=== PATIENT | male | born 1950 | race Caucasian/White ===

== ENCOUNTER → 2018-03-21 | Outpatient (CLI) | payer MEDICARE, OTHER ==
[~2018-03-21] MED LIST: /ATOR40TA; /LANS30GR; /TIOT18INH; ASPI81TA83; COZA50TA18; ISOVUE-M 300 61% 15ML VIAL (Q9967) As Ordered ONE; LIDOCAINE 1% MDV 20ML VIAL As Ordered ONE; NITR0.4S; TOPR100T
--- NOTE | 2018-03-21 10:27 | REP ---
CT LUMBAR SPINE WITHOUT CONTRAST: HISTORY: Back pain. CT of the lumbar spine was performed status post myelography. Contrast material is mostly subdural in location. A small amount of intrathecal contrast is present. A diffuse disc bulge is present at the L1-2 level. There are 2 mm of retrolisthesis of L1 on 2. There is minimal compression of the thecal sac. The L1 nerves exit the neural foramina without compression. A diffuse disc bulge is present at the L2-3 level. There is minimal compression of the thecal sac. The L2 nerves exit the neural foramina without compression. A diffuse disc bulge is present at the L3-4 level. There is hypertrophy of the ligamenta flava and posterior articulating facets. These findings produce mild central canal stenosis. The L3 nerves exit the neural foramina without compression. A diffuse disc bulge is present at the L4-5 level. There is hypertrophy of the ligamenta flava and posterior articulating facets. These findings produce moderate central canal stenosis. There is compression of the L4 nerves in the neural foramina. A diffuse disc bulge is present at the L5-S1 level. There is minimal compression of the thecal sac. There is hypertrophy of the posterior articulating facets. The L5 nerves exit the neural foramina without compression. The L1-2, L3-4, and L4-5 intervertebral discs are decreased in height consistent with disc degeneration. There is no subluxation. IMPRESSION: 1. Diffuse disc bulge at the L2-3 and L5-S1 levels with minimal thecal sac compression. 2. Mild central canal stenosis at the L3-4 level secondary to disc bulge, ligamentous, and facet hypertrophy. 3. Moderate central canal stenosis at the L4-5 level secondary to disc bulge, ligamentous, and facet hypertrophy. There is compression of the L4 nerves in the neural foramina. Electronically Signed by Luis Joseph MD 03/21/2018 10:43 A
--- NOTE | 2018-03-21 17:14 | REP ---
LUMBAR MYELOGRAM The procedure was performed under the personal supervision of Dr. Fuentes. The risks and benefits of the procedure were explained to the patient and informed consent was obtained. The L3-4 interspace was localized using fluoroscopic guidance. The skin was prepped and draped in a sterile fashion. 1% lidocaine was used as a local anesthetic. Using fluoroscopic guidance a 22-gauge spinal needle was inserted and advanced into the thecal sac. 10 ml of Isovue 300 was injected. Images obtained after injection show disc bulges at L1-2, L3-4 and L4-5. The needle was removed and the patient has taken to CT scan for postprocedural imaging. The patient tolerated the procedure well and there were no immediate complications. After the appropriate amount of monitored convalescence the patient was discharged from the department. 0.4 minutes of fluoroscopy time was utilized for this procedure. Reviewed by BREANA Alfaro 03/21/2018 04:47 P Electronically Signed by Shan Fuentes MD 03/21/2018 05:04 P
== END ==
LOC: M RADPRO 07:52
PROVIDERS: ATTEND Orthopaedic Surgery
DX: M48.07 Spinal stenosis, lumbosacral region (principal); M51.26 Other intervertebral disc displacement, lumbar region
CPT/HCPCS: 62284; 72131; 72265; Q9967

== ENCOUNTER → 2020-01-03 | Outpatient (CLI) | payer MEDICARE, BC ==
[~2020-01-03] MED LIST changes: -/ATOR40TA; -/TIOT18INH; -ISOVUE-M 300 61% 15ML VIAL (Q9967) As Ordered ONE; -LIDOCAINE 1% MDV 20ML VIAL As Ordered ONE; +LIPI1TAB2; +METO-745; +SPIR1CAP; -TOPR100T
== END ==
LOC: M LABSMTC 11:25
PROVIDERS: ATTEND Physical Medicine & Rehabilitation
DX: Z01.812 Encounter for preprocedural laboratory examination (principal); Z20.828 Contact with and (suspected) exposure to other viral communicable diseases

== ENCOUNTER → 2020-12-21 | Outpatient (CLI) | payer MEDICARE, BC ==
[~2020-12-21] MED LIST changes: +ASPI1CHW3 PO; +ATOR40TA75 PO; +CLOP75TA2 PO; +DEXA4TA PO; +FOLI400T13 PO; +GLUC1TAB58 PO; +IRBE150T7 PO; +LEVO75TA4 PO; +LIDOCAINE 1% MDV 20ML VIAL As Ordered ONE; +LIVA4TAB PO; +METO200T28 PO; +MIDAZOLAM INJ 2MG/2ML VIAL (J2250 PER 1MG) As Ordered ONE; +NITR0.4S14 SL; +NS 1,000 ML IV SCH; +ONDA8TAB10 PO; +PREV15CA PO; +PROC10TA4 PO; +VITATAB74 PO; +ceFAZolin 1GM VIAL (J0690 PER 500MG) As Ordered ONE; +ceFAZolin SOD 1 GM in D5W MINI-BAG PLUS 50 ML IV ONE; +ceFAZolin SOD 2 GM in IV 1 EA IV ONE; +diphenhydrAMINE 50MG/ML VIAL (J1200) As Ordered ONE; +fentaNYL 100 MCG/2 ML INJECTION (J3010) As Ordered ONE
--- NOTE | 2020-12-21 10:23 | IRHP ---
[facility] IR Pre-Procedure H & P General Date of Service: Dec 21, 2020 Procedure: Same Day Surgery Interval History and Physical I have seen the patient and reviewed last H & P performed within 30 days. There is no significant interval change. History of Present Illness Chief Complaint The patient is a 70-year-old male admitted with a reason for visit of Lung Ca. PRE-PROCEDURE DIAGNOSIS: Lung cancer HEART: normal rate. LUNGS: normal breathing at rest. ASA Classification ASA Classification: III-Severe systemic dis. Mallampati Score: II NPO: Yes Problems with prior sedation: No Obstructive Sleep Apnea: No Plan moderate sedation Allergies Coded Allergies: No Known Drug Allergies (Verified Allergy, Unknown, 12/21/20) Home Medications Scheduled Aspirin (Aspirin), 1 TAB PO DAILY, (Reported) Atorvastatin Calcium (Atorvastatin Calcium), 1 TAB PO DAILY, (Reported) Clopidogrel Bisulfate (Clopidogrel), 75 MG PO DAILY, (Reported) Irbesartan (Irbesartan), 1 TAB PO BID, (Reported) Levothyroxine Sodium (Levothyroxine Sodium), 75 MCG PO DAILY, (Reported) Metoprolol Succinate (Metoprolol Succinate), 100 MG PO BID, (Reported) Mv-Mn/Iron/Folic Acid/Herb 190 (Vitamin D3 Complete Caplet), 25 MG PO DAILY, (Reported) Nitroglycerin (Nitroglycerin), 1 TAB SL ASDIRECTED, (Reported) Pitavastatin Calcium (Livalo), 1 TAB PO DAILY, (Reported) Miscellaneous Medications Glucosamine/D3/Boswellia Negin (Osteo Bi-Flex Tablet), 1 EACH PO, (Reported) Discontinued Medications Lansoprazole (Prevacid 24Hr), 30 MG PO, (Reported) Discontinued Reason: Pt states not taking VS, I&O, 24H, Fishbone Vital Signs/I&O Vital Signs Date Time Temp Pulse Resp B/P (MAP) Pulse Ox O2 Delivery O2 Flow Rate FiO2 12/21/20 09:25 97.9 69 18 93 Room Air ANALI HOLLAND MD Dec 21, 2020 10:23
[2020-12-21 13:00] VITALS: BP 113/58
--- NOTE | 2020-12-21 14:06 | IRPON ---
IR Postoperative Note Date Of Procedure: Dec 21, 2020 Time Of Procedure: 14:05 IR Postoperative Note IR Ultrasound and fluoroscopy guided port placement IR Ultrasound of the neck. IR Moderate sedation. Clinical indication: Lung cancer. Physician: Dr. Escamilla. Procedure: The patient was advised of the benefits, risks, and alternatives of the procedure and informed consent was obtained. A time-out was performed with verification of the patient's name, MRN, site of procedure and type of procedure to be performed. The patient was positioned in the supine position on the angiographic table. The site was prepped and draped in the usual sterile fashion. Moderate sedation was performed by the physician including the presence of an independent trained RN who assisted and monitored the patient's level of consciousness and physiologic status. Following the administration of fentanyl and Versed , the physician spent 45 minutes of continuous face to face time with the patient. Ultrasound of the neck reveals a patent and compressible right internal jugular vein. A deep submergence vehicle crewmember radiograph reveals left-sided cardiac device. Pleurx catheter. The neck and anterior chest wall were anesthetized with lidocaine. The right internal jugular vein was accessed using a microintroducer needle under ultrasound guidance, via a lateral approach. An 018 wire was advanced into the superior vena cava, the needle was removed and a microsheath was placed. An Amplatz wire was then passed into the inferior vena cava. An incision at the internal jugular vein access site and anterior chest wall were made using a scalpel. An incision was made at the anterior chest wall. A small pocket was created using a combination of blunt and sharp dissection. A tunneling device was then used to pass the catheter from the pocket to the neck puncture site. An 8- Syrian Angio Stockdrift Smart power port was then positioned in the pocket. The catheter was then measured and cut. The introducer sheath was exchanged for a peel-away sheath. The catheter was passed through the peel-away sheath into the internal jugular vein and the peel-away sheath was removed. The port tip was positioned at the cavoatrial junction. The port was then accessed with a García needle. The port flushes and aspirates well. The puncture site in the neck was closed. The chest wall incision was then closed with 2-0 Vicryl and 4-0 Monocryl. Glue and Steri- Strips were applied. A sterile dressing was then applied. The patient tolerated the procedure well and was returned to the PRU in stable condition. Estimated blood loss: <5 ml. Complications: None. Conclusion: 1. Successful placement of an 8-Sy[place] Angio dynamics Smart power port via the right internal jugular vein. The port is ready for immediate use. 2. Patient to follow up in IR clinic in 2 weeks. Thank you for this referral. ANALI ESCAMILAL MD Dec 21, 2020 14:06
== END ==
LOC: M IRPRO 09:21
PROVIDERS: ATTEND Specialist
DX: C34.90 Malignant neoplasm of unspecified part of unspecified bronchus or lung (principal); Z79.82 Long term (current) use of aspirin; Z79.890 Hormone replacement therapy; Z79.899 Other long term (current) drug therapy
CPT/HCPCS: 36561; 99152; 99153; C1769; C1788; C1894; J0690; J1200; J1642; J1644; J2250; J3010

== ENCOUNTER → 2021-01-10 | Outpatient (POV) | payer MEDICARE, BC ==
[~2021-01-10] VITALS: Ht 170.2 cm; Wt 81.8 kg
[~2021-01-10] MED LIST changes: -LIDOCAINE 1% MDV 20ML VIAL As Ordered ONE; -MIDAZOLAM INJ 2MG/2ML VIAL (J2250 PER 1MG) As Ordered ONE; -NS 1,000 ML IV SCH; -ceFAZolin 1GM VIAL (J0690 PER 500MG) As Ordered ONE; -ceFAZolin SOD 1 GM in D5W MINI-BAG PLUS 50 ML IV ONE; -ceFAZolin SOD 2 GM in IV 1 EA IV ONE; -diphenhydrAMINE 50MG/ML VIAL (J1200) As Ordered ONE; -fentaNYL 100 MCG/2 ML INJECTION (J3010) As Ordered ONE
[2021-01-10 07:40] VITALS: BP 113/52
--- NOTE | 2021-01-12 12:32 | IRPN ---
[facility] IR Progress Note IR Progress Note DATE: Jan 10, 2021 FOLLOW-UP: Status post port placement. Patient doing well. Denies fevers, chills, pain or discharge at site. Port has been used without any issues. ON EXAMINATION: Port site appears to be healing well. No redness, tenderness or fluctuance at the site. IMPRESSION: Doing well status post port placement. No further follow-up sc heduled unless initiated by patient and/or referring provider. Thank you for this referral Allergies Coded Allergies: No Known Drug Allergies (Verified Allergy, Unknown, 12/21/20) VS,Fishbone, I+O VS, Fishbone, I+O Vital Signs Date Time Temp Pulse Resp B/P (MAP) Pulse Ox O2 Delivery O2 Flow Rate FiO2 01/10/21 07:40 96.6 64 18 113/52 (72) 95 Room Air ANALI HOLLAND MD Jan 12, 2021 12:32
== END ==
LOC: M IRPOV 07:25
PROVIDERS: ATTEND Radiology Diagnostic Radiology
DX: Z45.2 Encounter for adjustment and management of vascular access device (principal)

== ENCOUNTER → 2021-02-17 | Outpatient (CLI) | payer MEDICARE, BC ==
[~2021-02-17] MED LIST changes: +ISOVUE-370 76% 100ML VIAL As Ordered ONE; +OMEP10CASR PO
--- NOTE | 2021-02-17 14:27 | REP ---
INDICATION: MESTHELMONIA COMPARISON: 11/08/2020 TECHNIQUE: Axial contrast enhanced images from the thoracic inlet to the upper abdomen with coronal and sagittal reformations using 75 ml Isovue 370 intravenous contrast material. This CT examination was performed using the following dose reduction techniques: Automated exposure control, adjustment of mA and/or kv according to the patient's size, and use of iterative reconstruction technique. FINDINGS: A chest tube is identified within the posterior aspect of the right hemithorax. Advanced COPD/emphysematous changes along with advanced subpleural fibrosis is appreciated bilaterally along with associated bronchiectasis and scattered scarring. The previously noted significant irregular and somewhat nodular circumferential pleural thickening involving the right hemithorax is markedly improved and essentially resolved. Only minimal posterior pleural thickening is now identified. A small 5 mm pulmonary nodule noted in the periphery of the right middle lobe (image 68) which is similar to prior examination. Mildly prominent mediastinal and right hilar lymph nodes remain unchanged. No new acute mediastinal or pleuroparenchymal process is appreciated. Thoracic aorta demonstrates atherosclerotic changes without aneurysm or dissection. Mild cardiomegaly is appreciated with atherosclerotic changes to the coronary arteries, and no pericardial effusion. Oepgqq-[id number] identified with tip in the SVC. Pacemaker lead extend into the right atrium. Musculoskeletal structures intact and without acute osseous abnormality. IMPRESSION: 1. Markedly improved and nearly completely resolved circumferential nodular right pleural thickening as compared with prior examination dated 11/08/2020. 2. Residual 5 mm nodule in the periphery of the right middle lobe along with mediastinal/right hilar adenopathy remain unchanged. 3. No new acute process appreciated. <Electronically signed by Azael Prajapati > 02/17/21 [id number]
== END ==
LOC: M RAD 10:28
PROVIDERS: ATTEND Specialist
DX: C45.0 Mesothelioma of pleura (principal); J44.9 Chronic obstructive pulmonary disease, unspecified; R91.1 Solitary pulmonary nodule; I70.0 Atherosclerosis of aorta; I51.7 Cardiomegaly
CPT/HCPCS: 71260; Q9967

== ENCOUNTER → 2021-03-02 | Outpatient (CLI) | payer MEDICARE, BC ==
[~2021-03-02] MED LIST changes: +CENT1TAB2 PO; -ISOVUE-370 76% 100ML VIAL As Ordered ONE; +METO1TAB33 PO; +ONDA-84 PO; -ONDA8TAB10 PO; -PROC10TA4 PO; +PROC10TA5 PO; +TREL1AER INH
== END ==
LOC: M LABSMTC 09:53
PROVIDERS: ATTEND Pediatrics
DX: Z20.822 Contact with and (suspected) exposure to COVID-19 (principal)

== ENCOUNTER → 2021-05-19 | Outpatient (CLI) | payer MEDICARE, BC ==
[~2021-05-19] MED LIST changes: -CENT1TAB2 PO; +ISOVUE-370 76% 100ML VIAL As Ordered ONE; -METO1TAB33 PO; +TREL1AER; -TREL1AER INH
== END ==
LOC: M RAD 14:56
PROVIDERS: ATTEND Specialist
DX: C45.9 Mesothelioma, unspecified (principal)
CPT/HCPCS: 71260; Q9967

== ENCOUNTER 2021-05-27 16:23 | Inpatient (IN) | payer MEDICARE, BC ==
[~2021-05-27] VITALS: Ht 172.7 cm; Wt 87.0 kg
[~2021-05-27 16:23] MED LIST changes: -ISOVUE-370 76% 100ML VIAL As Ordered ONE; -TREL1AER; +TREL1AER INH
[2021-05-27 20:05] VITALS: BP 120/64
[2021-05-27 20:59] LABS: HEMATOCRIT 29.1 % (42.0-52.0); HEMOGLOBIN 9.1 g/dl (13.5-17.5)
[2021-05-27] MEDS ORDERED: IRBESARTAN 150MG TAB PO SCH (21:00)
[2021-05-27] MEDS ORDERED: IPRATROPIUM 0.5MG/ALBUTEROL 2.5MG INH SOL UD 3ML (DUONEB) NEB PRN (21:00)
[2021-05-27] MEDS ORDERED: METOPROLOL SUCC (TopROL XL) 100MG *XL* TAB PO SCH (21:00)
[2021-05-27] MEDS ORDERED: NS 1,000 ML IV SCH (21:05)
[2021-05-27 21:13] VITALS: BP 129/62
[2021-05-27 21:26] LABS: ALBUMIN 2.8 GM/DL (3.2-5.2); BILIRUBIN,TOTAL 0.2 MG/DL (0.2-1.0); CALCIUM LEVEL 8.9 MG/DL (8.8-10.2); CREATININE FOR GFR 1.54 MG/DL (0.70-1.30); GLOMERULAR FILTRATION RATE 47.6 (>42); MAGNESIUM LEVEL 1.9 MG/DL (1.8-2.4); POTASSIUM SERUM 5.3 MEQ/L (3.5-5.1); TOTAL PROTEIN 6.5 GM/DL (6.4-8.2)
[2021-05-27 22:00] VITALS: O2SAT 95
[2021-05-27] MEDS ORDERED: METO1TAB33 PO (22:46)
[2021-05-27] MEDS ORDERED: CENT1TAB2 PO (22:48)
[2021-05-27] MEDS ORDERED: HOME MED LIST COMPLETE! XX SCH (22:50)
[2021-05-27 23:00] VITALS: O2SAT 96
[2021-05-27 23:25] VITALS: O2SAT 96
[2021-05-27] MEDS ORDERED: PERCOCET 5MG/325MG TAB PO PRN (23:35)
[2021-05-27] MEDS: LIDOCAINE 5% (LIDODERM) PATCH TD SCH (23:40)
[2021-05-28] VITALS (50 sets, daily range): BP systolic 78–153; BP diastolic 40–79; O2SAT 94–97
[2021-05-28] MEDS: ACETAMINOPHEN TAB 650MG DOSE (2X325MG) PO PRN (03:21)
[2021-05-28] MEDS ORDERED: ONDANSETRON 4MG/2ML VIAL IV PRN ×2 (04:30→11:55)
[2021-05-28] MEDS ORDERED: TRANEXAMIC ACID INJection 1,000 MG in D5W 100 ML IV ONE (04:55)
[2021-05-28] MEDS ORDERED: NS 1,000 ML IV SCH (05:00)
[2021-05-28 05:51] LABS: BASO # 0.1 10^3/uL (0.0-0.2); BASO % 0.4 % (0.0-1.0); EOS % 0.1 % (0.0-3.0); HEMATOCRIT 24.1 % (42.0-52.0); HEMOGLOBIN 7.7 g/dl (13.5-17.5); LYMPH # 2.1 10^3/uL (1.5-5.0); LYMPH % 15.1 % (24.0-44.0); MEAN CORPUSCULAR HEMOGLOBIN 32.4 pg (27.0-33.0); MEAN CORPUSCULAR VOLUME 101.3 fl (80.0-96.0); MONO % 12.5 % (2.0-8.0); NEUTROPHILS % 71.3 % (36.0-66.0); PLATELET COUNT, AUTOMATED 225 10^3/uL (150-450); RED BLOOD COUNT 2.38 10^6/uL (4.30-6.10); WHITE BLOOD COUNT 14.1 10^3/uL (4.0-10.0)
[2021-05-28 05:59] LABS: BLOOD UREA NITROGEN 32 MG/DL (7-18); CALCIUM LEVEL 8.5 MG/DL (8.8-10.2); CARBON DIOXIDE LEVEL 20 MEQ/L (21-32); CHLORIDE LEVEL 105 MEQ/L (98-107); CREATININE FOR GFR 1.25 MG/DL (0.70-1.30); GLOMERULAR FILTRATION RATE > 60.0 (>42); GLUCOSE, FASTING 108 MG/DL (70-100); POTASSIUM SERUM 5.2 MEQ/L (3.5-5.1); SODIUM LEVEL 133 MEQ/L (136-145)
[2021-05-28] MEDS: LEVOTHYROXINE 75MCG TABLET (0.075MG) PO SCH (06:00)
[2021-05-28] MEDS ORDERED: MORPHINE 4 MG/ML 1ML VIAL/SYRINGE (J2270) IV ONE ×2 (06:00→07:00)
[2021-05-28] MEDS ORDERED: DOXYCYCLINE HYCLATE 100 MG in D5W MINI-BAG PLUS 100 ML IV SCH (06:00)
[2021-05-28 06:01] LABS: INR 1.04; PARTIAL THROMBOPLASTIN TIME 31.5 SECONDS (25.9-37.0)
[2021-05-28 06:22] LABS: MONO # 1.8 10^3/uL (0.0-0.8)
[2021-05-28] MEDS: MULTIVITAMINS/MINERALS THERAP 1 TAB PO SCH (09:00)
[2021-05-28] MEDS: **NOTE PATIENT COMMENT** MISC XX SCH (09:00)
[2021-05-28] MEDS ORDERED: EPINEPHrine 1MG/ML INJ 30ML MD-VIAL As Ordered ONE ×2 (09:43→10:48)
[2021-05-28] MEDS ORDERED: EPINEPHrine INJ 1 MG/ML 1ML AMP As Ordered ONE (09:43)
[2021-05-28] MEDS ORDERED: METHYLENE BLUE 0.5% (5MG/ML) 10 ML AMP (PROVAYBLUE) As Ordered ONE (09:45)
[2021-05-28] MEDS ORDERED: PHENYLephrine 500MCG 5ML (100MCG/ML) SYRINGE As Ordered ONE ×2 (10:10→10:11)
[2021-05-28] MEDS ORDERED: SUCCINYLCHOLINE 100 MG/5 ML SYRINGE (J0330) As Ordered ONE (10:10)
[2021-05-28] MEDS ORDERED: ePHEDrine SULFATE 25 MG/5 ML(5MG/ML) SYRINGE As Ordered ONE (10:11)
[2021-05-28] MEDS ORDERED: MIDAZOLAM INJ 2MG/2ML VIAL (J2250 PER 1MG) As Ordered ONE ×2 (10:13→17:39)
[2021-05-28] MEDS ORDERED: propofoL 200 MG/20 ML VIAL As Ordered ONE (10:13)
[2021-05-28] MEDS ORDERED: LIDOCAINE 2% 100MG/5ML SDV (FOR ANES.) As Ordered ONE (10:13)
[2021-05-28] MEDS ORDERED: ROCURONIUM BROMIDE 50 MG/5 ML VIAL As Ordered ONE (10:13)
[2021-05-28] MEDS ORDERED: fentaNYL 100 MCG/2 ML INJECTION As Ordered ONE ×2 (10:13→11:12)
[2021-05-28] MEDS ORDERED: SUGAMMADEX SODIUM 500 MG/5 ML VIAL (BRIDION) As Ordered ONE (10:22)
[2021-05-28] MEDS ORDERED: CALCIUM CHLORIDE 10% 1 GM/10 ML SYR As Ordered ONE (10:23)
[2021-05-28] MEDS ORDERED: METOPROLOL 5 MG/5 ML VIAL As Ordered ONE (10:40)
[2021-05-28] MEDS ORDERED: SILVER NITRATE APPLICATOR As Ordered ONE ×2 (10:44→11:06)
[2021-05-28] MEDS ORDERED: SILVER NITRATE APPLICATOR ONE (11:06)
[2021-05-28] MEDS ORDERED: LABETALOL 100MG/20ML VIAL As Ordered ONE (11:34)
[2021-05-28] MEDS: LABETALOL 100MG/20ML VIAL IV PRN ×3 (11:49→12:18)
[2021-05-28] MEDS ORDERED: LR 1,000 ML IV SCH (11:55)
[2021-05-28] MEDS ORDERED: fentaNYL 100 MCG/2 ML INJECTION IV PRN (11:55)
[2021-05-28 12:24] LABS: HEMATOCRIT 29.6 % (42.0-52.0); HEMOGLOBIN 9.5 g/dl (13.5-17.5); MEAN CORPUSCULAR HEMOGLOBIN 31.3 pg (27.0-33.0); MEAN CORPUSCULAR HGB CONC 32.1 g/dl (32.0-36.5); MEAN CORPUSCULAR VOLUME 97.4 fl (80.0-96.0); PLATELET COUNT, AUTOMATED 162 10^3/uL (150-450); RED BLOOD COUNT 3.04 10^6/uL (4.30-6.10); WHITE BLOOD COUNT 11.4 10^3/uL (4.0-10.0)
[2021-05-28] MEDS ORDERED: PROPOFOL 1,000 MG/100 ML VIAL As Ordered ONE (12:43)
[2021-05-28 12:55] LABS: ALBUMIN 2.6 GM/DL (3.2-5.2); ALT/SGPT 15 U/L (12-78); BILIRUBIN,TOTAL 0.7 MG/DL (0.2-1.0); BLOOD UREA NITROGEN 30 MG/DL (7-18); CALCIUM LEVEL 8.8 MG/DL (8.8-10.2); CARBON DIOXIDE LEVEL 22 MEQ/L (21-32); CHLORIDE LEVEL 107 MEQ/L (98-107); CREATININE FOR GFR 1.24 MG/DL (0.70-1.30); GLOMERULAR FILTRATION RATE > 60.0 (>42); GLUCOSE, FASTING 115 MG/DL (70-100); POTASSIUM SERUM 4.9 MEQ/L (3.5-5.1); SODIUM LEVEL 136 MEQ/L (136-145); TOTAL PROTEIN 5.5 GM/DL (6.4-8.2)
[2021-05-28 13:07] LABS: ABG BASE EXCESS -9.9 (-2.0-2.0); ABG HCO3 18.6 MEQ/L (22.0-26.0); ABG O2 SATURATION 86.2 % (95.0-99.0); ABG PARTIAL PRESSURE CO2 53.7 mmHg (35.0-45.0); ABG PARTIAL PRESSURE O2 62.1 mmHg (75.0-100.0); ABG STANDARD HCO3 16.3 MEQ/L (22.0-26.0); ABG TOTAL CO2 20.3 MEQ/L (23.0-31.0)
[2021-05-28 13:11] LABS: ABG pH (ARTERIAL) 7.158 UNITS (7.350-7.450)
[2021-05-28 13:44] LABS: ABG BASE EXCESS -4.3 (-2.0-2.0); ABG HCO3 21.7 MEQ/L (22.0-26.0); ABG O2 SATURATION 90.2 % (95.0-99.0); ABG PARTIAL PRESSURE CO2 43.7 mmHg (35.0-45.0); ABG PARTIAL PRESSURE O2 64.2 mmHg (75.0-100.0); ABG STANDARD HCO3 20.8 MEQ/L (22.0-26.0); ABG pH (ARTERIAL) 7.314 UNITS (7.350-7.450)
[2021-05-28] MEDS: propofoL 1,000 MG in IV 1 EA IV SCH ×3 (14:09→21:43)
[2021-05-28] MEDS ORDERED: TAZOBACTAM SOD IV SCH (14:15)
[2021-05-28] MEDS ORDERED: PIPERACILLIN IV SCH (14:15)
[2021-05-28] MEDS ORDERED: FLUID PLACE HOLDER IV SCH (14:15)
[2021-05-28] MEDS: PANTOPRAZOLE 40MG VIAL (C9113 PER 1) IV SCH (14:16)
[2021-05-28] MEDS: MUPIROCIN 2% OINT 22 GM TUBE TOP SCH ×2 (14:16→21:10)
[2021-05-28 14:31] LABS: BASO % 0.2 % (0.0-1.0); HEMATOCRIT 28.5 % (42.0-52.0); HEMOGLOBIN 9.5 g/dl (13.5-17.5); LYMPH # 0.4 10^3/uL (1.5-5.0); LYMPH % 3.3 % (24.0-44.0); MEAN CORPUSCULAR HEMOGLOBIN 31.6 pg (27.0-33.0); MEAN CORPUSCULAR HGB CONC 33.3 g/dl (32.0-36.5); MEAN CORPUSCULAR VOLUME 94.7 fl (80.0-96.0); MONO # 1.1 10^3/uL (0.0-0.8); MONO % 8.9 % (2.0-8.0); NEUTROPHILS # 10.5 10^3/uL (1.5-8.5); NEUTROPHILS % 86.7 % (36.0-66.0); PLATELET COUNT, AUTOMATED 144 10^3/uL (150-450); RED BLOOD COUNT 3.01 10^6/uL (4.30-6.10); WHITE BLOOD COUNT 12.1 10^3/uL (4.0-10.0)
[2021-05-28] MEDS ORDERED: ATROPINE SULF 1MG/10ML SYRINGE (J0461) ONE (15:04)
[2021-05-28] MEDS ORDERED: ePHEDrine SULFATE 25 MG/5 ML(5MG/ML) SYRINGE ONE (15:04)
[2021-05-28] MEDS: PIPERACILLIN/TAZOBACTAM SOD 3.375 GM in D5W MINI-BAG PLUS 50 ML IV SCH ×2 (16:16→21:09)
[2021-05-28] MEDS: MIDAZOLAM INJ 2MG/2ML VIAL (J2250 PER 1MG) IV PRN ×2 (17:26→18:26)
[2021-05-28 18:14] LABS: CREATININE FOR GFR 1.4 MG/DL (0.70-1.30); GLOMERULAR FILTRATION RATE 53.2 (>42); POTASSIUM SERUM 4.7 MEQ/L (3.5-5.1)
[2021-05-28] MEDS ORDERED: MIDAZOLAM INJ 2MG/2ML VIAL (J2250 PER 1MG) IV PRN (18:30)
[2021-05-28] MEDS: fentaNYL CITRATE 1,000 MCG in NS 80 ML IV SCH ×2 (19:00→20:35)
[2021-05-28] MEDS ORDERED: FUROSEMIDE 100MG/10ML VIAL (J1940) IV ONE (19:00)
[2021-05-28] MEDS: BUDESONIDE 0.5 MG/2 ML INHALATION SUSPENSION INH SCH (19:39)
[2021-05-28] MEDS ORDERED: NOREPINEPHRINE BITARTRATE 8 MG in D5W 492 ML IV SCH (20:00)
[2021-05-28 20:27] LABS: HEMATOCRIT 24.6 % (42.0-52.0); HEMOGLOBIN 8.2 g/dl (13.5-17.5); LYMPH # 0.5 10^3/uL (1.5-5.0); LYMPH % 3.8 % (24.0-44.0); MEAN CORPUSCULAR HEMOGLOBIN 31.1 pg (27.0-33.0); MEAN CORPUSCULAR HGB CONC 33.3 g/dl (32.0-36.5); MEAN CORPUSCULAR VOLUME 93.2 fl (80.0-96.0); MONO # 1.3 10^3/uL (0.0-0.8); MONO % 10.1 % (2.0-8.0); NEUTROPHILS # 10.9 10^3/uL (1.5-8.5); NEUTROPHILS % 85.3 % (36.0-66.0); PLATELET COUNT, AUTOMATED 132 10^3/uL (150-450); RED BLOOD COUNT 2.64 10^6/uL (4.30-6.10); WHITE BLOOD COUNT 12.8 10^3/uL (4.0-10.0)
[2021-05-28] MEDS: METOPROLOL TART 50 MG TAB PO SCH (20:36)
[2021-05-28] MEDS: LIDOCAINE 5% (LIDODERM) PATCH TD SCH (21:10)
[2021-05-28] MEDS: NOREPINEPHRINE BITARTRATE 8 MG in D5W 492 ML IV SCH (21:44)
[2021-05-28] MEDS ORDERED: NS 500 ML IV ONE (23:00)
[2021-05-29] VITALS (49 sets, daily range): BP systolic 76–137; BP diastolic 38–60
[2021-05-29 02:35] LABS: BASO % 0.1 % (0.0-1.0); HEMATOCRIT 25.1 % (42.0-52.0); HEMOGLOBIN 8.5 g/dl (13.5-17.5); MEAN CORPUSCULAR HEMOGLOBIN 31.6 pg (27.0-33.0); MEAN CORPUSCULAR HGB CONC 33.9 g/dl (32.0-36.5); MEAN CORPUSCULAR VOLUME 93.3 fl (80.0-96.0); MONO % 11.3 % (2.0-8.0); NEUTROPHILS # 13.8 10^3/uL (1.5-8.5); NEUTROPHILS % 82.1 % (36.0-66.0); PLATELET COUNT, AUTOMATED 158 10^3/uL (150-450); RED BLOOD COUNT 2.69 10^6/uL (4.30-6.10); WHITE BLOOD COUNT 16.8 10^3/uL (4.0-10.0)
[2021-05-29 02:41] LABS: MONO # 1.9 10^3/uL (0.0-0.8)
[2021-05-29] MEDS: PIPERACILLIN/TAZOBACTAM SOD 3.375 GM in D5W MINI-BAG PLUS 50 ML IV SCH ×4 (03:27→20:37)
[2021-05-29] MEDS: propofoL 1,000 MG in IV 1 EA IV SCH ×2 (03:28→06:29)
[2021-05-29] MEDS: LEVOTHYROXINE 75MCG TABLET (0.075MG) PO SCH (05:47)
[2021-05-29] MEDS: BUDESONIDE 0.5 MG/2 ML INHALATION SUSPENSION INH SCH ×2 (07:46→19:55)
[2021-05-29] MEDS: IRBESARTAN 150MG TAB GT SCH (08:51)
[2021-05-29] MEDS: METOPROLOL TART 50 MG TAB PO SCH ×2 (08:51→20:46)
[2021-05-29] MEDS: MUPIROCIN 2% OINT 22 GM TUBE TOP SCH ×2 (08:52→21:28)
[2021-05-29] MEDS: MULTIVITAMINS/MINERALS THERAP 1 TAB PO SCH (08:52)
[2021-05-29 08:56] LABS: BASO % 0.1 % (0.0-1.0); HEMATOCRIT 25.2 % (42.0-52.0); HEMOGLOBIN 8.5 g/dl (13.5-17.5); LYMPH # 1.4 10^3/uL (1.5-5.0); LYMPH % 8.2 % (24.0-44.0); MEAN CORPUSCULAR HEMOGLOBIN 31.7 pg (27.0-33.0); MEAN CORPUSCULAR HGB CONC 33.7 g/dl (32.0-36.5); MONO % 14.4 % (2.0-8.0); NEUTROPHILS # 12.8 10^3/uL (1.5-8.5); NEUTROPHILS % 76.5 % (36.0-66.0); PLATELET COUNT, AUTOMATED 167 10^3/uL (150-450); RED BLOOD COUNT 2.68 10^6/uL (4.30-6.10); WHITE BLOOD COUNT 16.7 10^3/uL (4.0-10.0)
[2021-05-29 08:57] LABS: MONO # 2.4 10^3/uL (0.0-0.8)
[2021-05-29] MEDS: **NOTE PATIENT COMMENT** MISC XX SCH (08:57)
[2021-05-29] MEDS ORDERED: dexmedeTOMidine 200 MCG in IV 1 EA IV SCH (09:10)
[2021-05-29 09:37] LABS: ALBUMIN 2.6 GM/DL (3.2-5.2); ALT/SGPT 14 U/L (12-78); BILIRUBIN,TOTAL 0.6 MG/DL (0.2-1.0); BLOOD UREA NITROGEN 23 MG/DL (7-18); CALCIUM LEVEL 8.8 MG/DL (8.8-10.2); CARBON DIOXIDE LEVEL 29 MEQ/L (21-32); CHLORIDE LEVEL 105 MEQ/L (98-107); CREATININE FOR GFR 1.09 MG/DL (0.70-1.30); GLOMERULAR FILTRATION RATE > 60.0 (>42); GLUCOSE, FASTING 108 MG/DL (70-100); MAGNESIUM LEVEL 1.7 MG/DL (1.8-2.4); POTASSIUM SERUM 4.6 MEQ/L (3.5-5.1); SODIUM LEVEL 138 MEQ/L (136-145); TOTAL PROTEIN 5.5 GM/DL (6.4-8.2)
[2021-05-29] MEDS: PANTOPRAZOLE 40MG VIAL (C9113 PER 1) IV SCH (15:10)
[2021-05-29] MEDS ORDERED: IRON SUCROSE 100MG 5ML VIAL (J1756 PER 1MG) IV ONE (15:20)
[2021-05-29] MEDS ORDERED: LR 500 ML IV ONE (16:05)
[2021-05-29] MEDS: LR 1,000 ML IV SCH ×2 (16:36→22:38)
[2021-05-29] MEDS: LIDOCAINE 5% (LIDODERM) PATCH TD SCH (20:38)
[2021-05-29] MEDS: ACETAMINOPHEN TAB 650MG DOSE (2X325MG) PO PRN (20:38)
[2021-05-29] MEDS: NOREPINEPHRINE BITARTRATE 8 MG in D5W 492 ML IV SCH (21:00)
[2021-05-29 21:02] LABS: BLOOD UREA NITROGEN 19 MG/DL (7-18); CALCIUM LEVEL 7.8 MG/DL (8.8-10.2); CARBON DIOXIDE LEVEL 27 MEQ/L (21-32); CHLORIDE LEVEL 112 MEQ/L (98-107); CREATININE FOR GFR 0.97 MG/DL (0.70-1.30); GLOMERULAR FILTRATION RATE > 60.0 (>42); GLUCOSE, FASTING 92 MG/DL (70-100); POTASSIUM SERUM 3.8 MEQ/L (3.5-5.1); SODIUM LEVEL 144 MEQ/L (136-145)
[2021-05-30] VITALS (19 sets, daily range): BP systolic 98–132; BP diastolic 52–62; O2SAT 87–96
[2021-05-30] MEDS: PIPERACILLIN/TAZOBACTAM SOD 3.375 GM in D5W MINI-BAG PLUS 50 ML IV SCH ×4 (02:23→21:04)
[2021-05-30 04:58] LABS: BASO % 0.3 % (0.0-1.0); EOS # 0.1 10^3/uL (0.0-0.5); EOS % 0.5 % (0.0-3.0); HEMATOCRIT 24.1 % (42.0-52.0); HEMOGLOBIN 7.8 g/dl (13.5-17.5); LYMPH # 1.3 10^3/uL (1.5-5.0); LYMPH % 14.1 % (24.0-44.0); MEAN CORPUSCULAR HEMOGLOBIN 31.5 pg (27.0-33.0); MEAN CORPUSCULAR HGB CONC 32.4 g/dl (32.0-36.5); MEAN CORPUSCULAR VOLUME 97.2 fl (80.0-96.0); MONO # 1.3 10^3/uL (0.0-0.8); MONO % 13.5 % (2.0-8.0); NEUTROPHILS # 6.8 10^3/uL (1.5-8.5); NEUTROPHILS % 71.2 % (36.0-66.0); PLATELET COUNT, AUTOMATED 145 10^3/uL (150-450); RED BLOOD COUNT 2.48 10^6/uL (4.30-6.10); WHITE BLOOD COUNT 9.5 10^3/uL (4.0-10.0)
[2021-05-30 05:22] LABS: BLOOD UREA NITROGEN 18 MG/DL (7-18); CALCIUM LEVEL 8.4 MG/DL (8.8-10.2); CARBON DIOXIDE LEVEL 31 MEQ/L (21-32); CHLORIDE LEVEL 106 MEQ/L (98-107); CREATININE FOR GFR 1.05 MG/DL (0.70-1.30); GLOMERULAR FILTRATION RATE > 60.0 (>42); GLUCOSE, FASTING 79 MG/DL (70-100); SODIUM LEVEL 143 MEQ/L (136-145)
[2021-05-30] MEDS: LEVOTHYROXINE 75MCG TABLET (0.075MG) PO SCH (05:58)
[2021-05-30] MEDS: MUPIROCIN 2% OINT 22 GM TUBE TOP SCH ×2 (07:51→21:03)
[2021-05-30] MEDS: METOPROLOL TART 50 MG TAB PO SCH ×2 (07:52→21:10)
[2021-05-30] MEDS: MULTIVITAMINS/MINERALS THERAP 1 TAB PO SCH (07:52)
[2021-05-30] MEDS: **NOTE PATIENT COMMENT** MISC XX SCH (07:52)
[2021-05-30] MEDS: IRBESARTAN 150MG TAB GT SCH (07:53)
[2021-05-30] MEDS: BUDESONIDE 0.5 MG/2 ML INHALATION SUSPENSION INH SCH ×2 (08:13→19:32)
[2021-05-30] MEDS: ACETAMINOPHEN TAB 650MG DOSE (2X325MG) PO PRN (11:46)
[2021-05-30] MEDS: PANTOPRAZOLE 40MG VIAL (C9113 PER 1) IV SCH (14:48)
[2021-05-30] MEDS: LR 1,000 ML IV SCH (15:52)
[2021-05-30] MEDS ORDERED: PERCOCET 5MG/325MG TAB PO ONE (17:15)
[2021-05-30] MEDS: FORMOTEROL FUMARATE 20 MCG/2 ML INHALATION SOLUTION (PERFOROMIST) NEB SCH (19:32)
[2021-05-30] MEDS: LIDOCAINE 5% (LIDODERM) PATCH TD SCH (21:00)
[2021-05-31] VITALS (17 sets, daily range): BP systolic 84–140; BP diastolic 40–72; O2SAT 79–100
[2021-05-31] MEDS: PIPERACILLIN/TAZOBACTAM SOD 3.375 GM in D5W MINI-BAG PLUS 50 ML IV SCH ×2 (03:34→09:16)
[2021-05-31] MEDS ORDERED: diphenhydrAMINE 50MG CAP PO ONE (05:45)
[2021-05-31] MEDS ORDERED: ACETAMINOPHEN TAB 650MG DOSE (2X325MG) PO ONE (05:45)
[2021-05-31] MEDS: TIOTROPIUM INHALER/CAPSULE (SPIRIVA) INH SCH ×2 (05:54→07:22)
[2021-05-31] MEDS: LEVOTHYROXINE 75MCG TABLET (0.075MG) PO SCH (06:31)
[2021-05-31 06:57] LABS: HEMATOCRIT 24.4 % (42.0-52.0); HEMOGLOBIN 7.9 g/dl (13.5-17.5); MEAN CORPUSCULAR HEMOGLOBIN 31.9 pg (27.0-33.0); MEAN CORPUSCULAR HGB CONC 32.4 g/dl (32.0-36.5); MEAN CORPUSCULAR VOLUME 98.4 fl (80.0-96.0); PLATELET COUNT, AUTOMATED 157 10^3/uL (150-450); RED BLOOD COUNT 2.48 10^6/uL (4.30-6.10); WHITE BLOOD COUNT 9.6 10^3/uL (4.0-10.0)
[2021-05-31] MEDS: FORMOTEROL FUMARATE 20 MCG/2 ML INHALATION SOLUTION (PERFOROMIST) NEB SCH ×2 (07:22→20:00)
[2021-05-31] MEDS: BUDESONIDE 0.5 MG/2 ML INHALATION SUSPENSION INH SCH ×2 (07:22→20:00)
[2021-05-31 07:30] LABS: BLOOD UREA NITROGEN 15 MG/DL (7-18); CALCIUM LEVEL 8.4 MG/DL (8.8-10.2); CARBON DIOXIDE LEVEL 30 MEQ/L (21-32); CHLORIDE LEVEL 104 MEQ/L (98-107); CREATININE FOR GFR 0.97 MG/DL (0.70-1.30); GLOMERULAR FILTRATION RATE > 60.0 (>42); GLUCOSE, FASTING 87 MG/DL (70-100); POTASSIUM SERUM 3.9 MEQ/L (3.5-5.1); SODIUM LEVEL 139 MEQ/L (136-145)
[2021-05-31] MEDS ORDERED: FERRIC CARBOXYMALTOSE INJ 750 MG, VIAL MATE ADAPTER 1 EACH in NS 250 ML IV ONE (09:00)
[2021-05-31] MEDS: ASPIRIN 81 MG CHEW TABLET PO SCH (09:14)
[2021-05-31] MEDS: MULTIVITAMINS/MINERALS THERAP 1 TAB PO SCH (09:14)
[2021-05-31] MEDS: MUPIROCIN 2% OINT 22 GM TUBE TOP SCH ×2 (09:16→21:22)
[2021-05-31] MEDS: IRBESARTAN 150MG TAB GT SCH (09:16)
[2021-05-31] MEDS: METOPROLOL TART 50 MG TAB PO SCH (09:16)
[2021-05-31] MEDS: **NOTE PATIENT COMMENT** MISC XX SCH (09:16)
[2021-05-31] MEDS ORDERED: NS 1,000 ML IV ONE (11:50)
[2021-05-31] MEDS: MIDODRINE 5 MG TAB PO SCH ×2 (12:48→15:29)
[2021-05-31] MEDS: PANTOPRAZOLE 40MG VIAL (C9113 PER 1) IV SCH (15:29)
[2021-05-31 17:10] LABS: HEMATOCRIT 23.9 % (42.0-52.0); HEMOGLOBIN 7.7 g/dl (13.5-17.5)
[2021-05-31] MEDS: LIDOCAINE 5% (LIDODERM) PATCH TD SCH (21:00)
[2021-05-31] MEDS: AUGMENTIN 875 MG TAB PO SCH (21:22)
[2021-06-01] VITALS (16 sets, daily range): BP systolic 118–146; BP diastolic 56–69; O2SAT 92–98
[2021-06-01] MEDS: ACETAMINOPHEN TAB 650MG DOSE (2X325MG) PO PRN ×2 (00:31→16:08)
[2021-06-01 05:44] LABS: HEMATOCRIT 24.3 % (42.0-52.0); HEMOGLOBIN 7.7 g/dl (13.5-17.5); MEAN CORPUSCULAR HEMOGLOBIN 31.4 pg (27.0-33.0); MEAN CORPUSCULAR HGB CONC 31.7 g/dl (32.0-36.5); MEAN CORPUSCULAR VOLUME 99.2 fl (80.0-96.0); PLATELET COUNT, AUTOMATED 168 10^3/uL (150-450); RED BLOOD COUNT 2.45 10^6/uL (4.30-6.10)
[2021-06-01] MEDS: LEVOTHYROXINE 75MCG TABLET (0.075MG) PO SCH (06:02)
[2021-06-01 06:14] LABS: BLOOD UREA NITROGEN 18 MG/DL (7-18); CARBON DIOXIDE LEVEL 29 MEQ/L (21-32); CHLORIDE LEVEL 108 MEQ/L (98-107); GLOMERULAR FILTRATION RATE > 60.0 (>42); GLUCOSE, FASTING 81 MG/DL (70-100); SODIUM LEVEL 141 MEQ/L (136-145)
[2021-06-01] MEDS: TIOTROPIUM INHALER/CAPSULE (SPIRIVA) INH SCH (07:43)
[2021-06-01] MEDS: BUDESONIDE 0.5 MG/2 ML INHALATION SUSPENSION INH SCH ×2 (07:43→20:37)
[2021-06-01] MEDS: FORMOTEROL FUMARATE 20 MCG/2 ML INHALATION SOLUTION (PERFOROMIST) NEB SCH ×2 (07:43→20:37)
[2021-06-01] MEDS: MIDODRINE 5 MG TAB PO SCH ×3 (08:00→15:55)
[2021-06-01] MEDS: MUPIROCIN 2% OINT 22 GM TUBE TOP SCH ×2 (09:49→21:26)
[2021-06-01] MEDS: MULTIVITAMINS/MINERALS THERAP 1 TAB PO SCH (09:49)
[2021-06-01] MEDS: ASPIRIN 81 MG CHEW TABLET PO SCH (09:49)
[2021-06-01] MEDS: AUGMENTIN 875 MG TAB PO SCH ×2 (09:49→21:26)
[2021-06-01] MEDS: **NOTE PATIENT COMMENT** MISC XX SCH (09:53)
[2021-06-01 10:55] LABS: BLOOD UREA NITROGEN 19 MG/DL (7-18); CHLORIDE LEVEL 108 MEQ/L (98-107); GLOMERULAR FILTRATION RATE > 60.0 (>42); GLUCOSE, FASTING 156 MG/DL (70-100); POTASSIUM SERUM 3.8 MEQ/L (3.5-5.1); SODIUM LEVEL 141 MEQ/L (136-145)
[2021-06-01 10:56] LABS: CALCIUM LEVEL 8.3 MG/DL (8.8-10.2); CARBON DIOXIDE LEVEL 29 MEQ/L (21-32)
[2021-06-01] MEDS: PANTOPRAZOLE 40MG VIAL (C9113 PER 1) IV SCH (14:59)
[2021-06-01] MEDS: LIDOCAINE 5% (LIDODERM) PATCH TD SCH (21:26)
[2021-06-02] VITALS (9 sets, daily range): BP systolic 108–173; BP diastolic 53–79; O2SAT 90–95
[2021-06-02] MEDS: LEVOTHYROXINE 75MCG TABLET (0.075MG) PO SCH (05:44)
[2021-06-02 05:50] LABS: HEMATOCRIT 29.3 % (42.0-52.0); HEMOGLOBIN 9.5 g/dl (13.5-17.5); MEAN CORPUSCULAR HEMOGLOBIN 31.4 pg (27.0-33.0); MEAN CORPUSCULAR HGB CONC 32.4 g/dl (32.0-36.5); MEAN CORPUSCULAR VOLUME 96.7 fl (80.0-96.0); PLATELET COUNT, AUTOMATED 174 10^3/uL (150-450); RED BLOOD COUNT 3.03 10^6/uL (4.30-6.10); WHITE BLOOD COUNT 9.9 10^3/uL (4.0-10.0)
[2021-06-02 06:11] LABS: BLOOD UREA NITROGEN 16 MG/DL (7-18); CALCIUM LEVEL 8.3 MG/DL (8.8-10.2); CARBON DIOXIDE LEVEL 25 MEQ/L (21-32); CHLORIDE LEVEL 107 MEQ/L (98-107); CREATININE FOR GFR 0.91 MG/DL (0.70-1.30); GLOMERULAR FILTRATION RATE > 60.0 (>42); GLUCOSE, FASTING 91 MG/DL (70-100); POTASSIUM SERUM 3.9 MEQ/L (3.5-5.1); SODIUM LEVEL 137 MEQ/L (136-145)
[2021-06-02] MEDS: MIDODRINE 5 MG TAB PO SCH ×3 (08:00→16:00)
[2021-06-02] MEDS: BUDESONIDE 0.5 MG/2 ML INHALATION SUSPENSION INH SCH ×2 (08:21→20:09)
[2021-06-02] MEDS: FORMOTEROL FUMARATE 20 MCG/2 ML INHALATION SOLUTION (PERFOROMIST) NEB SCH ×2 (08:21→20:09)
[2021-06-02] MEDS: TIOTROPIUM INHALER/CAPSULE (SPIRIVA) INH SCH (08:21)
[2021-06-02] MEDS: ASPIRIN 81 MG CHEW TABLET PO SCH (08:48)
[2021-06-02] MEDS: MULTIVITAMINS/MINERALS THERAP 1 TAB PO SCH (08:48)
[2021-06-02] MEDS: AUGMENTIN 875 MG TAB PO SCH ×2 (08:48→20:24)
[2021-06-02] MEDS: MUPIROCIN 2% OINT 22 GM TUBE TOP SCH ×2 (09:10→20:25)
[2021-06-02 10:51] LABS: ABG BASE EXCESS -1.5 (-2.0-2.0); ABG HCO3 21.8 MEQ/L (22.0-26.0); ABG O2 SATURATION 95.8 % (95.0-99.0); ABG PARTIAL PRESSURE CO2 31.6 mmHg (35.0-45.0); ABG PARTIAL PRESSURE O2 76.2 mmHg (75.0-100.0); ABG STANDARD HCO3 23.2 MEQ/L (22.0-26.0); ABG TOTAL CO2 22.7 MEQ/L (23.0-31.0); ABG pH (ARTERIAL) 7.456 UNITS (7.350-7.450)
[2021-06-02] MEDS: **NOTE PATIENT COMMENT** MISC XX SCH (11:19)
[2021-06-02] MEDS: PANTOPRAZOLE 40MG VIAL (C9113 PER 1) IV SCH (14:01)
[2021-06-02] MEDS: LIDOCAINE 5% (LIDODERM) PATCH TD SCH (20:14)
[2021-06-02] MEDS ORDERED: ALBUTEROL 90 MCG/ACT 8GM HFA INHALER INH PRN (20:40)
[2021-06-02] MEDS: ACETAMINOPHEN TAB 650MG DOSE (2X325MG) PO PRN (20:51)
[2021-06-02] MEDS: IPRATROPIUM 0.5MG/ALBUTEROL 2.5MG INH SOL UD 3ML (DUONEB) NEB SCH ×2 (20:59→23:38)
[2021-06-02] MEDS ORDERED: ISOVUE-370 76% 100ML VIAL As Ordered ONE (21:18)
[2021-06-02] MEDS ORDERED: METOPROLOL TART 12.5 MG PER 1/2 TAB PO ONE (21:45)
[2021-06-02 22:42] LABS: HEMATOCRIT 28.5 % (42.0-52.0); HEMOGLOBIN 9.3 g/dl (13.5-17.5); MEAN CORPUSCULAR HEMOGLOBIN 31.6 pg (27.0-33.0); MEAN CORPUSCULAR HGB CONC 32.6 g/dl (32.0-36.5); MEAN CORPUSCULAR VOLUME 96.9 fl (80.0-96.0); PLATELET COUNT, AUTOMATED 161 10^3/uL (150-450); RED BLOOD COUNT 2.94 10^6/uL (4.30-6.10); WHITE BLOOD COUNT 10.3 10^3/uL (4.0-10.0)
[2021-06-02 23:14] LABS: CK-MB VALUE MASS < 1.0 NG/ML (<3.6); CPK CREATINE PHOSPHOKINASE 59 U/L (39-308); MB/CK RELATIVE INDEX 1.69 (< OR =4)
[2021-06-02] MEDS ORDERED: FUROSEMIDE 40MG/4ML VIAL (J1940) IV ONE (23:15)
[2021-06-03] VITALS (20 sets, daily range): BP systolic 110–135; BP diastolic 55–65; O2SAT 82–100
[2021-06-03] MEDS: IPRATROPIUM 0.5MG/ALBUTEROL 2.5MG INH SOL UD 3ML (DUONEB) NEB SCH ×6 (03:26→23:22)
[2021-06-03] MEDS: ACETAMINOPHEN TAB 650MG DOSE (2X325MG) PO PRN (04:05)
[2021-06-03 05:24] LABS: HEMATOCRIT 30.6 % (42.0-52.0); HEMOGLOBIN 9.9 g/dl (13.5-17.5); MEAN CORPUSCULAR HEMOGLOBIN 31.4 pg (27.0-33.0); MEAN CORPUSCULAR HGB CONC 32.4 g/dl (32.0-36.5); MEAN CORPUSCULAR VOLUME 97.1 fl (80.0-96.0); PLATELET COUNT, AUTOMATED 182 10^3/uL (150-450); RED BLOOD COUNT 3.15 10^6/uL (4.30-6.10); WHITE BLOOD COUNT 12.7 10^3/uL (4.0-10.0)
[2021-06-03 05:43] LABS: BLOOD UREA NITROGEN 17 MG/DL (7-18); CALCIUM LEVEL 8.5 MG/DL (8.8-10.2); CARBON DIOXIDE LEVEL 25 MEQ/L (21-32); CHLORIDE LEVEL 105 MEQ/L (98-107); GLOMERULAR FILTRATION RATE > 60.0 (>42); GLUCOSE, FASTING 120 MG/DL (70-100); POTASSIUM SERUM 4.1 MEQ/L (3.5-5.1); SODIUM LEVEL 136 MEQ/L (136-145)
[2021-06-03] MEDS: LEVOTHYROXINE 75MCG TABLET (0.075MG) PO SCH (05:55)
[2021-06-03] MEDS: HEPARIN DRIP 25,000 UNITS in IV 1 EA IV SCH (06:00)
[2021-06-03] MEDS ORDERED: HEPARIN SOD (PORCINE) 5000UNITS/ML 1ML VIAL/SYRINGE IV PRN (06:00)
[2021-06-03] MEDS ORDERED: HEPARIN SOD (PORCINE) 5000UNITS/ML 1ML VIAL/SYRINGE IV ONE (06:00)
[2021-06-03] MEDS: TIOTROPIUM INHALER/CAPSULE (SPIRIVA) INH SCH (07:12)
[2021-06-03] MEDS: FORMOTEROL FUMARATE 20 MCG/2 ML INHALATION SOLUTION (PERFOROMIST) NEB SCH ×2 (07:14→19:43)
[2021-06-03] MEDS: BUDESONIDE 0.5 MG/2 ML INHALATION SUSPENSION INH SCH ×2 (07:14→19:43)
[2021-06-03] MEDS: ASPIRIN 81 MG CHEW TABLET PO SCH (09:12)
[2021-06-03] MEDS: MULTIVITAMINS/MINERALS THERAP 1 TAB PO SCH (09:12)
[2021-06-03] MEDS: PIPERACILLIN/TAZOBACTAM SOD 4.5 GM in D5W MINI-BAG PLUS 50 ML IV SCH ×2 (09:12→15:10)
[2021-06-03] MEDS: FUROSEMIDE 40MG/4ML VIAL (J1940) IV SCH (09:13)
[2021-06-03] MEDS: MIDODRINE 5 MG TAB PO SCH ×3 (09:13→15:57)
[2021-06-03] MEDS: MUPIROCIN 2% OINT 22 GM TUBE TOP SCH ×2 (09:14→21:42)
[2021-06-03] MEDS: **NOTE PATIENT COMMENT** MISC XX SCH (09:15)
[2021-06-03] MEDS ORDERED: FUROSEMIDE 20MG/2ML VIAL (J1940) As Ordered ONE (10:51)
[2021-06-03] MEDS ORDERED: methylPREDNISolone 125MG 2ML VIAL IV ONE (10:55)
[2021-06-03] MEDS ORDERED: FUROSEMIDE 40MG/4ML VIAL (J1940) IV ONE ×2 (11:00→15:00)
[2021-06-03] MEDS: LEVALBUTEROL 1.25 MG/0.5 ML CONCENTRATE NEB INH SCH ×6 (11:08→15:31)
[2021-06-03 11:09] LABS: ABG HCO3 21.1 MEQ/L (22.0-26.0); ABG O2 SATURATION 80.1 % (95.0-99.0); ABG PARTIAL PRESSURE CO2 30.7 mmHg (35.0-45.0); ABG PARTIAL PRESSURE O2 42.8 mmHg (75.0-100.0); ABG STANDARD HCO3 22.5 MEQ/L (22.0-26.0); ABG pH (ARTERIAL) 7.455 UNITS (7.350-7.450)
[2021-06-03 11:58] LABS: NT-PRO BNP 786 PG/ML (<125)
[2021-06-03 12:04] LABS: CK-MB VALUE MASS < 1.0 NG/ML (<3.6); CPK CREATINE PHOSPHOKINASE 64 U/L (39-308); MB/CK RELATIVE INDEX 1.56 (< OR =4)
[2021-06-03 12:15] LABS: LDH LACTATE DEHYDROGENASE 748 U/L (87-241)
[2021-06-03] MEDS: SODIUM CHLORIDE NASAL 0.65% SPRAY BTL (OCEAN) SCH ×11 (13:53→23:26)
[2021-06-03] MEDS: PANTOPRAZOLE 40MG VIAL (C9113 PER 1) IV SCH (13:56)
[2021-06-03] MEDS ORDERED: VANCOMYCIN HCL 1,000 MG, VIAL MATE ADAPTER 1 EACH in NS 250 ML IV ONE (14:00)
[2021-06-03] MEDS ORDERED: SODIUM CHLORIDE HYPERTONIC 3% 15ML NEB SOL NEB ONE (14:00)
[2021-06-03 16:53] LABS: NT-PRO BNP 574 PG/ML (<125)
[2021-06-03] MEDS: LIDOCAINE 5% (LIDODERM) PATCH TD SCH (21:00)
[2021-06-03] MEDS: VANCOMYCIN HCL 1,000 MG, VIAL MATE ADAPTER 1 EACH in NS 250 ML IV SCH (21:41)
[2021-06-03 22:30] LABS: ABG BASE EXCESS 1.2 (-2.0-2.0); ABG HCO3 24.3 MEQ/L (22.0-26.0); ABG O2 SATURATION 85.3 % (95.0-99.0); ABG STANDARD HCO3 25.3 MEQ/L (22.0-26.0); ABG TOTAL CO2 25.3 MEQ/L (23.0-31.0); ABG pH (ARTERIAL) 7.485 UNITS (7.350-7.450)
[2021-06-03 22:34] LABS: ABG PARTIAL PRESSURE O2 47.7 mmHg (75.0-100.0)
[2021-06-03] MEDS: methylPREDNISolone 125MG 2ML VIAL IV SCH (22:46)
[2021-06-04] VITALS (15 sets, daily range): BP systolic 105–138; BP diastolic 55–86
[2021-06-04] MEDS: PIPERACILLIN/TAZOBACTAM SOD 4.5 GM in D5W MINI-BAG PLUS 50 ML IV SCH ×4 (00:27→23:53)
[2021-06-04] MEDS: SODIUM CHLORIDE NASAL 0.65% SPRAY BTL (OCEAN) SCH ×24 (01:11→23:40)
[2021-06-04] MEDS: IPRATROPIUM 0.5MG/ALBUTEROL 2.5MG INH SOL UD 3ML (DUONEB) NEB SCH ×5 (03:47→19:40)
[2021-06-04 04:02] LABS: ABG BASE EXCESS 0.9 (-2.0-2.0); ABG HCO3 25.2 MEQ/L (22.0-26.0); ABG O2 SATURATION 99.1 % (95.0-99.0); ABG PARTIAL PRESSURE CO2 39.1 mmHg (35.0-45.0); ABG PARTIAL PRESSURE O2 174.6 mmHg (75.0-100.0); ABG STANDARD HCO3 25.3 MEQ/L (22.0-26.0); ABG TOTAL CO2 26.4 MEQ/L (23.0-31.0); ABG pH (ARTERIAL) 7.427 UNITS (7.350-7.450)
[2021-06-04] MEDS: methylPREDNISolone 125MG 2ML VIAL IV SCH ×2 (05:13→20:38)
[2021-06-04] MEDS: HEPARIN DRIP 25,000 UNITS in IV 1 EA IV SCH (05:14)
[2021-06-04] MEDS: LEVOTHYROXINE 75MCG TABLET (0.075MG) PO SCH (05:58)
[2021-06-04] MEDS: MIDODRINE 5 MG TAB PO SCH ×4 (07:40→18:27)
[2021-06-04] MEDS: TIOTROPIUM INHALER/CAPSULE (SPIRIVA) INH SCH (08:00)
[2021-06-04] MEDS: FORMOTEROL FUMARATE 20 MCG/2 ML INHALATION SOLUTION (PERFOROMIST) NEB SCH ×2 (08:15→19:40)
[2021-06-04] MEDS: BUDESONIDE 0.5 MG/2 ML INHALATION SUSPENSION INH SCH ×2 (08:15→19:40)
[2021-06-04 08:30] LABS: BASO % 0.2 % (0.0-1.0); HEMATOCRIT 29.9 % (42.0-52.0); HEMOGLOBIN 9.7 g/dl (13.5-17.5); LYMPH # 0.4 10^3/uL (1.5-5.0); LYMPH % 2.5 % (24.0-44.0); MEAN CORPUSCULAR HEMOGLOBIN 31.6 pg (27.0-33.0); MEAN CORPUSCULAR HGB CONC 32.4 g/dl (32.0-36.5); MEAN CORPUSCULAR VOLUME 97.4 fl (80.0-96.0); MONO # 0.8 10^3/uL (0.0-0.8); MONO % 4.9 % (2.0-8.0); NEUTROPHILS # 15.3 10^3/uL (1.5-8.5); NEUTROPHILS % 91.6 % (36.0-66.0); PLATELET COUNT, AUTOMATED 215 10^3/uL (150-450); RED BLOOD COUNT 3.07 10^6/uL (4.30-6.10); WHITE BLOOD COUNT 16.7 10^3/uL (4.0-10.0)
[2021-06-04 08:40] LABS: ALBUMIN 2.3 GM/DL (3.2-5.2); ALT/SGPT 16 U/L (12-78); BILIRUBIN,TOTAL 0.8 MG/DL (0.2-1.0); BLOOD UREA NITROGEN 33 MG/DL (7-18); CALCIUM LEVEL 8.8 MG/DL (8.8-10.2); CARBON DIOXIDE LEVEL 27 MEQ/L (21-32); CHLORIDE LEVEL 103 MEQ/L (98-107); CREATININE FOR GFR 1.21 MG/DL (0.70-1.30); GLOMERULAR FILTRATION RATE > 60.0 (>42); GLUCOSE, FASTING 138 MG/DL (70-100); MAGNESIUM LEVEL 2.1 MG/DL (1.8-2.4); POTASSIUM SERUM 3.8 MEQ/L (3.5-5.1); SODIUM LEVEL 136 MEQ/L (136-145)
[2021-06-04] MEDS: **NOTE PATIENT COMMENT** MISC XX SCH (09:00)
[2021-06-04] MEDS: MULTIVITAMINS/MINERALS THERAP 1 TAB PO SCH (09:54)
[2021-06-04] MEDS: ASPIRIN 81 MG CHEW TABLET PO SCH (09:54)
[2021-06-04] MEDS: FUROSEMIDE 40MG/4ML VIAL (J1940) IV SCH (09:54)
[2021-06-04] MEDS: VANCOMYCIN HCL 1,000 MG, VIAL MATE ADAPTER 1 EACH in NS 250 ML IV SCH (09:55)
[2021-06-04] MEDS: MUPIROCIN 2% OINT 22 GM TUBE TOP SCH ×2 (09:56→20:40)
[2021-06-04] MEDS: PANTOPRAZOLE 40MG VIAL (C9113 PER 1) IV SCH (13:58)
[2021-06-04] MEDS: DOXYCYCLINE HYCLATE 100 MG in D5W MINI-BAG PLUS 100 ML IV SCH (14:42)
[2021-06-04] MEDS: LIDOCAINE 5% (LIDODERM) PATCH TD SCH (20:39)
[2021-06-05] VITALS (11 sets, daily range): BP systolic 119–140; BP diastolic 58–88; O2SAT 96
[2021-06-05] MEDS: IPRATROPIUM 0.5MG/ALBUTEROL 2.5MG INH SOL UD 3ML (DUONEB) NEB SCH ×4 (00:01→12:09)
[2021-06-05] MEDS: SODIUM CHLORIDE NASAL 0.65% SPRAY BTL (OCEAN) SCH ×23 (01:00→23:00)
[2021-06-05] MEDS: DOXYCYCLINE HYCLATE 100 MG in D5W MINI-BAG PLUS 100 ML IV SCH ×2 (02:57→15:14)
[2021-06-05] MEDS: HEPARIN DRIP 25,000 UNITS in IV 1 EA IV SCH (02:58)
[2021-06-05] MEDS: LEVOTHYROXINE 75MCG TABLET (0.075MG) PO SCH (05:21)
[2021-06-05 05:42] LABS: BASO % 0.1 % (0.0-1.0); HEMATOCRIT 28.2 % (42.0-52.0); HEMOGLOBIN 9.3 g/dl (13.5-17.5); LYMPH # 0.6 10^3/uL (1.5-5.0); LYMPH % 2.9 % (24.0-44.0); MEAN CORPUSCULAR HEMOGLOBIN 31.8 pg (27.0-33.0); MEAN CORPUSCULAR VOLUME 96.6 fl (80.0-96.0); MONO % 4.7 % (2.0-8.0); NEUTROPHILS # 19.5 10^3/uL (1.5-8.5); NEUTROPHILS % 90.8 % (36.0-66.0); PLATELET COUNT, AUTOMATED 236 10^3/uL (150-450); RED BLOOD COUNT 2.92 10^6/uL (4.30-6.10); WHITE BLOOD COUNT 21.5 10^3/uL (4.0-10.0)
[2021-06-05 05:59] LABS: BLOOD UREA NITROGEN 43 MG/DL (7-18); CALCIUM LEVEL 8.5 MG/DL (8.8-10.2); CARBON DIOXIDE LEVEL 29 MEQ/L (21-32); CHLORIDE LEVEL 101 MEQ/L (98-107); CREATININE FOR GFR 1.21 MG/DL (0.70-1.30); GLOMERULAR FILTRATION RATE > 60.0 (>42); GLUCOSE, FASTING 143 MG/DL (70-100); MAGNESIUM LEVEL 2.3 MG/DL (1.8-2.4); POTASSIUM SERUM 3.8 MEQ/L (3.5-5.1); SODIUM LEVEL 136 MEQ/L (136-145)
[2021-06-05] MEDS: TIOTROPIUM INHALER/CAPSULE (SPIRIVA) INH SCH (07:21)
[2021-06-05] MEDS: FORMOTEROL FUMARATE 20 MCG/2 ML INHALATION SOLUTION (PERFOROMIST) NEB SCH ×2 (07:21→19:26)
[2021-06-05] MEDS: BUDESONIDE 0.5 MG/2 ML INHALATION SUSPENSION INH SCH ×2 (07:21→19:26)
[2021-06-05] MEDS ORDERED: guaiFENesin DM LIQ 10ML UD PO ONE (09:00)
[2021-06-05] MEDS: ASPIRIN 81 MG CHEW TABLET PO SCH (09:10)
[2021-06-05] MEDS: MULTIVITAMINS/MINERALS THERAP 1 TAB PO SCH (09:11)
[2021-06-05] MEDS: methylPREDNISolone 125MG 2ML VIAL IV SCH ×2 (09:11→21:01)
[2021-06-05] MEDS: MIDODRINE 5 MG TAB PO SCH ×3 (09:19→15:14)
[2021-06-05] MEDS: PIPERACILLIN/TAZOBACTAM SOD 4.5 GM in D5W MINI-BAG PLUS 50 ML IV SCH ×2 (09:19→15:15)
[2021-06-05] MEDS: **NOTE PATIENT COMMENT** MISC XX SCH (09:25)
[2021-06-05] MEDS: MUPIROCIN 2% OINT 22 GM TUBE TOP SCH ×2 (09:26→21:06)
[2021-06-05] MEDS: PANTOPRAZOLE 40MG VIAL (C9113 PER 1) IV SCH (11:43)
[2021-06-05] MEDS ORDERED: guaiFENesin DM LIQ 10ML UD PO PRN (12:00)
[2021-06-05] MEDS ORDERED: ALPRAZolam 0.25 MG TAB PO PRN (12:20)
[2021-06-05] MEDS: LIDOCAINE 5% (LIDODERM) PATCH TD SCH (21:00)
[2021-06-06] VITALS (63 sets, daily range): BP systolic 100–232; BP diastolic 41–108
[2021-06-06] MEDS: PIPERACILLIN/TAZOBACTAM SOD 4.5 GM in D5W MINI-BAG PLUS 50 ML IV SCH ×4 (00:25→23:51)
[2021-06-06] MEDS: SODIUM CHLORIDE NASAL 0.65% SPRAY BTL (OCEAN) SCH ×16 (01:00→21:10)
[2021-06-06] MEDS: DOXYCYCLINE HYCLATE 100 MG in D5W MINI-BAG PLUS 100 ML IV SCH ×2 (03:18→15:06)
[2021-06-06] MEDS: HEPARIN DRIP 25,000 UNITS in IV 1 EA IV SCH (03:44)
[2021-06-06 05:05] LABS: BASO % 0.2 % (0.0-1.0); HEMATOCRIT 29.6 % (42.0-52.0); HEMOGLOBIN 9.7 g/dl (13.5-17.5); LYMPH # 0.7 10^3/uL (1.5-5.0); LYMPH % 3.2 % (24.0-44.0); MEAN CORPUSCULAR HEMOGLOBIN 31.7 pg (27.0-33.0); MEAN CORPUSCULAR HGB CONC 32.8 g/dl (32.0-36.5); MEAN CORPUSCULAR VOLUME 96.7 fl (80.0-96.0); MONO # 1.1 10^3/uL (0.0-0.8); MONO % 4.7 % (2.0-8.0); NEUTROPHILS # 20.1 10^3/uL (1.5-8.5); NEUTROPHILS % 90.2 % (36.0-66.0); PLATELET COUNT, AUTOMATED 259 10^3/uL (150-450); RED BLOOD COUNT 3.06 10^6/uL (4.30-6.10); WHITE BLOOD COUNT 22.3 10^3/uL (4.0-10.0)
[2021-06-06] MEDS: LEVOTHYROXINE 75MCG TABLET (0.075MG) PO SCH (06:34)
[2021-06-06 06:45] LABS: BLOOD UREA NITROGEN 44 MG/DL (7-18); CARBON DIOXIDE LEVEL 30 MEQ/L (21-32); CHLORIDE LEVEL 100 MEQ/L (98-107); CREATININE FOR GFR 1.09 MG/DL (0.70-1.30); GLOMERULAR FILTRATION RATE > 60.0 (>42); GLUCOSE, FASTING 156 MG/DL (70-100); MAGNESIUM LEVEL 2.5 MG/DL (1.8-2.4); POTASSIUM SERUM 4.5 MEQ/L (3.5-5.1); SODIUM LEVEL 138 MEQ/L (136-145)
[2021-06-06] MEDS: MIDODRINE 5 MG TAB PO SCH (08:00)
[2021-06-06] MEDS: methylPREDNISolone 125MG 2ML VIAL IV SCH ×2 (08:48→21:09)
[2021-06-06] MEDS: MUPIROCIN 2% OINT 22 GM TUBE TOP SCH ×2 (08:49→21:09)
[2021-06-06] MEDS: MULTIVITAMINS/MINERALS THERAP 1 TAB PO SCH (08:49)
[2021-06-06] MEDS: ASPIRIN 81 MG CHEW TABLET PO SCH (08:49)
[2021-06-06] MEDS: **NOTE PATIENT COMMENT** MISC XX SCH (08:50)
[2021-06-06] MEDS ORDERED: methylPREDNISolone 125MG 2ML VIAL IV SCH (09:00)
[2021-06-06] MEDS: FORMOTEROL FUMARATE 20 MCG/2 ML INHALATION SOLUTION (PERFOROMIST) NEB SCH ×2 (09:13→19:50)
[2021-06-06] MEDS: BUDESONIDE 0.5 MG/2 ML INHALATION SUSPENSION INH SCH ×2 (09:13→19:50)
[2021-06-06] MEDS ORDERED: NOREPINEPHRINE BITARTRATE 8 MG in D5W 492 ML IV SCH ×2 (11:00→23:00)
[2021-06-06] MEDS ORDERED: ROCURONIUM BROMIDE 50 MG/5 ML VIAL IV ONE (11:10)
[2021-06-06] MEDS ORDERED: MIDAZOLAM INJ 2MG/2ML VIAL (J2250 PER 1MG) IV STA (11:10)
[2021-06-06] MEDS ORDERED: fentaNYL 100 MCG/2 ML INJECTION IV ONE (11:10)
[2021-06-06] MEDS ORDERED: NOREPINEPHRINE 4 MG/4 ML AMP As Ordered ONE (11:18)
[2021-06-06] MEDS ORDERED: ETOMIDATE INJ 20MG/10ML VIAL IV STA (11:20)
[2021-06-06] MEDS: propofoL 1,000 MG in IV 1 EA IV SCH ×4 (11:45→23:51)
[2021-06-06] MEDS ORDERED: fentaNYL 100 MCG/2 ML INJECTION IV PRN (12:35)
[2021-06-06] MEDS: PANTOPRAZOLE 40MG VIAL (C9113 PER 1) IV SCH (13:21)
[2021-06-06] MEDS ORDERED: dexmedeTOMidine 200 MCG in IV 1 EA IV SCH (15:55)
[2021-06-06] MEDS: MIDAZOLAM INJ 2MG/2ML VIAL (J2250 PER 1MG) IV PRN ×2 (16:18→21:48)
[2021-06-06] MEDS: NS 1,000 ML IV SCH (18:23)
[2021-06-06] MEDS: LIDOCAINE 5% (LIDODERM) PATCH TD SCH (21:09)
[2021-06-07] VITALS (35 sets, daily range): BP systolic 95–134; BP diastolic 49–64; O2SAT 98
[2021-06-07] MEDS: DOXYCYCLINE HYCLATE 100 MG in D5W MINI-BAG PLUS 100 ML IV SCH ×2 (02:12→13:50)
[2021-06-07] MEDS: SODIUM CHLORIDE NASAL 0.65% SPRAY BTL (OCEAN) SCH ×6 (02:12→21:05)
[2021-06-07] MEDS: propofoL 1,000 MG in IV 1 EA IV SCH ×7 (03:15→22:20)
[2021-06-07] MEDS: NS 1,000 ML IV SCH ×2 (04:25→19:00)
[2021-06-07 05:13] LABS: BASO % 0.2 % (0.0-1.0); HEMATOCRIT 26.4 % (42.0-52.0); HEMOGLOBIN 8.3 g/dl (13.5-17.5); LYMPH # 0.5 10^3/uL (1.5-5.0); LYMPH % 2.9 % (24.0-44.0); MEAN CORPUSCULAR HEMOGLOBIN 31.2 pg (27.0-33.0); MEAN CORPUSCULAR HGB CONC 31.4 g/dl (32.0-36.5); MEAN CORPUSCULAR VOLUME 99.2 fl (80.0-96.0); MONO # 0.7 10^3/uL (0.0-0.8); MONO % 3.6 % (2.0-8.0); NEUTROPHILS # 16.1 10^3/uL (1.5-8.5); NEUTROPHILS % 90.2 % (36.0-66.0); PLATELET COUNT, AUTOMATED 205 10^3/uL (150-450); RED BLOOD COUNT 2.66 10^6/uL (4.30-6.10); WHITE BLOOD COUNT 17.8 10^3/uL (4.0-10.0)
[2021-06-07] MEDS: LEVOTHYROXINE 75MCG TABLET (0.075MG) PO SCH (05:22)
[2021-06-07 05:31] LABS: BLOOD UREA NITROGEN 43 MG/DL (7-18); CALCIUM LEVEL 7.8 MG/DL (8.8-10.2); CARBON DIOXIDE LEVEL 32 MEQ/L (21-32); CHLORIDE LEVEL 103 MEQ/L (98-107); CREATININE FOR GFR 1.15 MG/DL (0.70-1.30); GLOMERULAR FILTRATION RATE > 60.0 (>42); GLUCOSE, FASTING 144 MG/DL (70-100); MAGNESIUM LEVEL 2.8 MG/DL (1.8-2.4); SODIUM LEVEL 137 MEQ/L (136-145)
[2021-06-07] MEDS: BUDESONIDE 0.5 MG/2 ML INHALATION SUSPENSION INH SCH ×2 (07:29→20:09)
[2021-06-07] MEDS: FORMOTEROL FUMARATE 20 MCG/2 ML INHALATION SOLUTION (PERFOROMIST) NEB SCH ×2 (07:29→20:09)
[2021-06-07] MEDS: PIPERACILLIN/TAZOBACTAM SOD 4.5 GM in D5W MINI-BAG PLUS 50 ML IV SCH ×3 (07:40→23:52)
[2021-06-07] MEDS: MULTIVITAMINS/MINERALS THERAP 1 TAB PO SCH (07:41)
[2021-06-07] MEDS: methylPREDNISolone 125MG 2ML VIAL IV SCH ×2 (07:41→21:04)
[2021-06-07] MEDS: ASPIRIN 81 MG CHEW TABLET PO SCH (07:41)
[2021-06-07] MEDS: MUPIROCIN 2% OINT 22 GM TUBE TOP SCH ×2 (07:42→21:07)
[2021-06-07] MEDS: **NOTE PATIENT COMMENT** MISC XX SCH (09:41)
[2021-06-07] MEDS: CHLORHEXIDINE GLUCONATE 0.12 % 15ML UDC (PERIDEX ORAL RINSE) SSP SCH ×2 (12:17→21:05)
[2021-06-07] MEDS: PANTOPRAZOLE 40MG VIAL (C9113 PER 1) IV SCH (13:38)
[2021-06-07 15:53] LABS: BLOOD UREA NITROGEN 41 MG/DL (7-18); CALCIUM LEVEL 8.2 MG/DL (8.8-10.2); CARBON DIOXIDE LEVEL 31 MEQ/L (21-32); CHLORIDE LEVEL 104 MEQ/L (98-107); GLOMERULAR FILTRATION RATE > 60.0 (>42); GLUCOSE, FASTING 153 MG/DL (70-100); POTASSIUM SERUM 4.8 MEQ/L (3.5-5.1); SODIUM LEVEL 138 MEQ/L (136-145)
[2021-06-07] MEDS: LIDOCAINE 5% (LIDODERM) PATCH TD SCH (21:05)
[2021-06-07] MEDS: MIDAZOLAM INJ 2MG/2ML VIAL (J2250 PER 1MG) IV PRN (23:53)
[2021-06-08] VITALS (41 sets, daily range): BP systolic 95–142; BP diastolic 48–65
[2021-06-08] MEDS: SODIUM CHLORIDE NASAL 0.65% SPRAY BTL (OCEAN) SCH ×6 (01:25→21:37)
[2021-06-08] MEDS: propofoL 1,000 MG in IV 1 EA IV SCH ×9 (01:25→22:52)
[2021-06-08] MEDS: DOXYCYCLINE HYCLATE 100 MG in D5W MINI-BAG PLUS 100 ML IV SCH (03:01)
[2021-06-08] MEDS: MIDAZOLAM INJ 2MG/2ML VIAL (J2250 PER 1MG) IV PRN ×3 (03:04→23:40)
[2021-06-08] MEDS: NS 1,000 ML IV SCH (03:07)
[2021-06-08 05:07] LABS: HEMATOCRIT 26.1 % (42.0-52.0); HEMOGLOBIN 8.2 g/dl (13.5-17.5); MEAN CORPUSCULAR HEMOGLOBIN 31.5 pg (27.0-33.0); MEAN CORPUSCULAR HGB CONC 31.4 g/dl (32.0-36.5); MEAN CORPUSCULAR VOLUME 100.4 fl (80.0-96.0); PLATELET COUNT, AUTOMATED 166 10^3/uL (150-450); WHITE BLOOD COUNT 17.7 10^3/uL (4.0-10.0)
[2021-06-08] MEDS: LEVOTHYROXINE 75MCG TABLET (0.075MG) PO SCH (05:28)
[2021-06-08 05:30] LABS: ALT/SGPT 19 U/L (12-78); BILIRUBIN,DIRECT 0.3 MG/DL (0.0-0.2); BILIRUBIN,TOTAL 0.7 MG/DL (0.2-1.0); BLOOD UREA NITROGEN 43 MG/DL (7-18); CALCIUM LEVEL 7.5 MG/DL (8.8-10.2); CARBON DIOXIDE LEVEL 31 MEQ/L (21-32); CHLORIDE LEVEL 106 MEQ/L (98-107); GLOMERULAR FILTRATION RATE > 60.0 (>42); GLUCOSE, FASTING 189 MG/DL (70-100); PHOSPHORUS LEVEL 1.8 MG/DL (2.5-4.9); POTASSIUM SERUM 4.8 MEQ/L (3.5-5.1); SODIUM LEVEL 140 MEQ/L (136-145); TOTAL PROTEIN 5.7 GM/DL (6.4-8.2)
[2021-06-08] MEDS: BUDESONIDE 0.5 MG/2 ML INHALATION SUSPENSION INH SCH ×2 (07:36→19:40)
[2021-06-08] MEDS: FORMOTEROL FUMARATE 20 MCG/2 ML INHALATION SOLUTION (PERFOROMIST) NEB SCH ×2 (07:37→19:40)
[2021-06-08] MEDS: CHLORHEXIDINE GLUCONATE 0.12 % 15ML UDC (PERIDEX ORAL RINSE) SSP SCH ×2 (08:49→21:42)
[2021-06-08] MEDS: PIPERACILLIN/TAZOBACTAM SOD 4.5 GM in D5W MINI-BAG PLUS 50 ML IV SCH ×3 (08:50→23:41)
[2021-06-08] MEDS: MULTIVITAMINS/MINERALS THERAP 1 TAB PO SCH (08:52)
[2021-06-08] MEDS: ASPIRIN 81 MG CHEW TABLET PO SCH (08:52)
[2021-06-08 08:53] LABS: ABG BASE EXCESS 3.6 (-2.0-2.0); ABG HCO3 30.2 MEQ/L (22.0-26.0); ABG O2 SATURATION 90.9 % (95.0-99.0); ABG PARTIAL PRESSURE O2 63.5 mmHg (75.0-100.0); ABG STANDARD HCO3 27.6 MEQ/L (22.0-26.0); ABG pH (ARTERIAL) 7.342 UNITS (7.350-7.450)
[2021-06-08] MEDS: methylPREDNISolone 125MG 2ML VIAL IV SCH (08:53)
[2021-06-08] MEDS: MUPIROCIN 2% OINT 22 GM TUBE TOP SCH ×2 (08:55→21:42)
[2021-06-08] MEDS: **NOTE PATIENT COMMENT** MISC XX SCH (08:55)
[2021-06-08] MEDS ORDERED: SODIUM PHOSPHATE INJ 30 MMOL in D5W 500 ML IV ONE (12:00)
[2021-06-08] MEDS: PANTOPRAZOLE 40MG VIAL (C9113 PER 1) IV SCH (14:36)
[2021-06-08] MEDS: LIDOCAINE 5% (LIDODERM) PATCH TD SCH (21:41)
[2021-06-09] VITALS (29 sets, daily range): BP systolic 111–161; BP diastolic 55–70
[2021-06-09] MEDS: SODIUM CHLORIDE NASAL 0.65% SPRAY BTL (OCEAN) SCH ×6 (01:21→21:21)
[2021-06-09] MEDS: propofoL 1,000 MG in IV 1 EA IV SCH ×8 (01:22→22:00)
[2021-06-09] MEDS: MIDAZOLAM INJ 2MG/2ML VIAL (J2250 PER 1MG) IV PRN ×2 (04:15→07:17)
[2021-06-09 05:56] LABS: HEMATOCRIT 27.4 % (42.0-52.0); HEMOGLOBIN 8.6 g/dl (13.5-17.5); MEAN CORPUSCULAR HEMOGLOBIN 31.5 pg (27.0-33.0); MEAN CORPUSCULAR HGB CONC 31.4 g/dl (32.0-36.5); MEAN CORPUSCULAR VOLUME 100.4 fl (80.0-96.0); PLATELET COUNT, AUTOMATED 132 10^3/uL (150-450); RED BLOOD COUNT 2.73 10^6/uL (4.30-6.10); WHITE BLOOD COUNT 16.9 10^3/uL (4.0-10.0)
[2021-06-09 06:03] LABS: ABG BASE EXCESS 5.5 (-2.0-2.0); ABG HCO3 31.7 MEQ/L (22.0-26.0); ABG PARTIAL PRESSURE CO2 55.7 mmHg (35.0-45.0); ABG PARTIAL PRESSURE O2 61.1 mmHg (75.0-100.0); ABG STANDARD HCO3 29.3 MEQ/L (22.0-26.0); ABG TOTAL CO2 33.4 MEQ/L (23.0-31.0); ABG pH (ARTERIAL) 7.373 UNITS (7.350-7.450)
[2021-06-09] MEDS: LEVOTHYROXINE 75MCG TABLET (0.075MG) PO SCH (06:15)
[2021-06-09 06:35] LABS: BLOOD UREA NITROGEN 39 MG/DL (7-18); CALCIUM LEVEL 7.4 MG/DL (8.8-10.2); CARBON DIOXIDE LEVEL 34 MEQ/L (21-32); CHLORIDE LEVEL 106 MEQ/L (98-107); GLOMERULAR FILTRATION RATE > 60.0 (>42); GLUCOSE, FASTING 107 MG/DL (70-100); POTASSIUM SERUM 4.7 MEQ/L (3.5-5.1); SODIUM LEVEL 141 MEQ/L (136-145)
[2021-06-09] MEDS: BUDESONIDE 0.5 MG/2 ML INHALATION SUSPENSION INH SCH ×2 (07:55→19:43)
[2021-06-09] MEDS: FORMOTEROL FUMARATE 20 MCG/2 ML INHALATION SOLUTION (PERFOROMIST) NEB SCH (07:55)
[2021-06-09] MEDS ORDERED: MIDAZOLAM INJ 2MG/2ML VIAL (J2250 PER 1MG) IV PRN (08:05)
[2021-06-09] MEDS: PIPERACILLIN/TAZOBACTAM SOD 4.5 GM in D5W MINI-BAG PLUS 50 ML IV SCH ×3 (08:22→23:30)
[2021-06-09] MEDS: MULTIVITAMINS/MINERALS THERAP 1 TAB PO SCH (08:25)
[2021-06-09] MEDS: methylPREDNISolone 125MG 2ML VIAL IV SCH ×2 (08:25→20:51)
[2021-06-09] MEDS: CHLORHEXIDINE GLUCONATE 0.12 % 15ML UDC (PERIDEX ORAL RINSE) SSP SCH ×2 (08:25→20:51)
[2021-06-09] MEDS: ASPIRIN 81 MG CHEW TABLET PO SCH (08:25)
[2021-06-09] MEDS: MUPIROCIN 2% OINT 22 GM TUBE TOP SCH ×2 (08:26→20:52)
[2021-06-09] MEDS: **NOTE PATIENT COMMENT** MISC XX SCH (08:26)
[2021-06-09] MEDS ORDERED: methylPREDNISolone 125MG 2ML VIAL IV SCH (09:00)
[2021-06-09 09:17] LABS: APPEARANCE, URINE HAZY (CLEAR); BACTERIA, URINE AUTO NEGATIVE (NEGATIVE); BILIRUBIN, URINE AUTO NEGATIVE (NEGATIVE); BLOOD, URINE BLOOD 1+ (NEGATIVE); COLOR, URINE YELLOW (YELLOW); GLUCOSE, URINE (UA) AUTO NEGATIVE (NEGATIVE); KETONE, URINE AUTO NEGATIVE (NEGATIVE); LEUKOCYTE ESTERASE, URINE AUTO NEGATIVE (NEGATIVE); MUCUS, URINE SMALL (NEGATIVE); NITRITE, URINE AUTO NEGATIVE (NEGATIVE); PROTEIN, URINE AUTO 1+ mg/dL (NEGATIVE); RBC, URINE AUTO 94 /HPF (0-3); SPECIFIC GRAVITY URINE AUTO 1.028 (1.002-1.035); SQUAMOUS EPITHELIAL CELL UR AU 0 /HPF (0-6); WBC, URINE AUTO 2 /HPF (0-3)
[2021-06-09] MEDS: fentaNYL CITRATE 1,000 MCG in NS 80 ML IV SCH (10:02)
[2021-06-09] MEDS: PANTOPRAZOLE 40MG VIAL (C9113 PER 1) IV SCH (13:03)
[2021-06-09 16:11] LABS: ASPERGILLUS GALACTOMANNAN AG 0.03 Index (0.00-0.49)
[2021-06-09] MEDS ORDERED: MIRALAX *UNIT DOSE* 17GM PACKET PO PRN (17:10)
[2021-06-10] VITALS (14 sets, daily range): BP systolic 105–167; BP diastolic 55–74
[2021-06-10] MEDS: fentaNYL CITRATE 1,000 MCG in NS 80 ML IV SCH (00:38)
[2021-06-10] MEDS: propofoL 1,000 MG in IV 1 EA IV SCH ×4 (01:12→10:55)
[2021-06-10] MEDS: SODIUM CHLORIDE NASAL 0.65% SPRAY BTL (OCEAN) SCH ×3 (01:14→10:56)
[2021-06-10 05:26] LABS: BASO # 0.1 10^3/uL (0.0-0.2); BASO % 0.4 % (0.0-1.0); EOS % 0.1 % (0.0-3.0); HEMATOCRIT 28.9 % (42.0-52.0); HEMOGLOBIN 9.2 g/dl (13.5-17.5); LYMPH # 0.5 10^3/uL (1.5-5.0); LYMPH % 2.2 % (24.0-44.0); MEAN CORPUSCULAR HEMOGLOBIN 32.4 pg (27.0-33.0); MEAN CORPUSCULAR HGB CONC 31.8 g/dl (32.0-36.5); MEAN CORPUSCULAR VOLUME 101.8 fl (80.0-96.0); MONO # 0.9 10^3/uL (0.0-0.8); MONO % 4.1 % (2.0-8.0); NEUTROPHILS # 20.2 10^3/uL (1.5-8.5); NEUTROPHILS % 88.5 % (36.0-66.0); PLATELET COUNT, AUTOMATED 101 10^3/uL (150-450); RED BLOOD COUNT 2.84 10^6/uL (4.30-6.10); WHITE BLOOD COUNT 22.8 10^3/uL (4.0-10.0)
[2021-06-10] MEDS: LEVOTHYROXINE 75MCG TABLET (0.075MG) PO SCH (05:45)
[2021-06-10 05:52] LABS: ABG BASE EXCESS 2.9 (-2.0-2.0); ABG HCO3 31.9 MEQ/L (22.0-26.0); ABG O2 SATURATION 92.2 % (95.0-99.0); ABG TOTAL CO2 34.2 MEQ/L (23.0-31.0)
[2021-06-10 05:53] LABS: ABG PARTIAL PRESSURE CO2 76.4 mmHg (35.0-45.0)
[2021-06-10 05:55] LABS: ABG pH (ARTERIAL) 7.238 UNITS (7.350-7.450)
[2021-06-10 05:59] LABS: BLOOD UREA NITROGEN 61 MG/DL (7-18); CALCIUM LEVEL 7.4 MG/DL (8.8-10.2); CARBON DIOXIDE LEVEL 35 MEQ/L (21-32); CHLORIDE LEVEL 103 MEQ/L (98-107); CREATININE FOR GFR 1.16 MG/DL (0.70-1.30); GLOMERULAR FILTRATION RATE > 60.0 (>42); GLUCOSE, FASTING 168 MG/DL (70-100); POTASSIUM SERUM 6.2 MEQ/L (3.5-5.1); SODIUM LEVEL 139 MEQ/L (136-145)
[2021-06-10] MEDS: BUDESONIDE 0.5 MG/2 ML INHALATION SUSPENSION INH SCH (07:23)
[2021-06-10] MEDS: ASPIRIN 81 MG CHEW TABLET PO SCH (08:05)
[2021-06-10] MEDS: MULTIVITAMINS/MINERALS THERAP 1 TAB PO SCH (08:05)
[2021-06-10] MEDS: CHLORHEXIDINE GLUCONATE 0.12 % 15ML UDC (PERIDEX ORAL RINSE) SSP SCH (08:05)
[2021-06-10] MEDS: PIPERACILLIN/TAZOBACTAM SOD 4.5 GM in D5W MINI-BAG PLUS 50 ML IV SCH (08:05)
[2021-06-10] MEDS: MUPIROCIN 2% OINT 22 GM TUBE TOP SCH (08:06)
[2021-06-10] MEDS: methylPREDNISolone 125MG 2ML VIAL IV SCH (08:06)
[2021-06-10] MEDS: **NOTE PATIENT COMMENT** MISC XX SCH (08:06)
[2021-06-10 08:09] LABS: BLOOD UREA NITROGEN 61 MG/DL (7-18); CALCIUM LEVEL 7.4 MG/DL (8.8-10.2); CARBON DIOXIDE LEVEL 36 MEQ/L (21-32); CHLORIDE LEVEL 103 MEQ/L (98-107); CREATININE FOR GFR 1.08 MG/DL (0.70-1.30); GLOMERULAR FILTRATION RATE > 60.0 (>42); GLUCOSE, FASTING 155 MG/DL (70-100); POTASSIUM SERUM 6.2 MEQ/L (3.5-5.1); SODIUM LEVEL 140 MEQ/L (136-145)
[2021-06-10] MEDS ORDERED: DEXTROSE 50% 50 ML SYRINGE IV STA (08:24)
[2021-06-10] MEDS ORDERED: SOD POLYSTYRENE SULFONATE SUSP 15 GM/60 ML UD PO ONE (08:25)
[2021-06-10] MEDS ORDERED: HumuLIN R (REGULAR) INSULIN (NovoLIN R) **100U/ML** PER UNIT IV ONE (08:25)
[2021-06-10] MEDS ORDERED: CALCIUM GLUCONATE 1,000 MG in D5W MINI-BAG PLUS 100 ML IV ONE (08:25)
[2021-06-10] MEDS ORDERED: SENOKOT S TAB PO SCH (09:00)
[2021-06-10 09:47] LABS: ABG BASE EXCESS 3.6 (-2.0-2.0); ABG HCO3 33.9 MEQ/L (22.0-26.0); ABG O2 SATURATION 90.7 % (95.0-99.0); ABG PARTIAL PRESSURE O2 68.1 mmHg (75.0-100.0); ABG STANDARD HCO3 27.5 MEQ/L (22.0-26.0); ABG TOTAL CO2 36.7 MEQ/L (23.0-31.0)
[2021-06-10 09:50] LABS: ABG PARTIAL PRESSURE CO2 91.4 mmHg (35.0-45.0); ABG pH (ARTERIAL) 7.187 UNITS (7.350-7.450)
[2021-06-10 12:48] LABS: BLOOD UREA NITROGEN 64 MG/DL (7-18); CALCIUM LEVEL 7.4 MG/DL (8.8-10.2); CARBON DIOXIDE LEVEL 35 MEQ/L (21-32); CHLORIDE LEVEL 103 MEQ/L (98-107); CREATININE FOR GFR 1.03 MG/DL (0.70-1.30); GLOMERULAR FILTRATION RATE > 60.0 (>42); GLUCOSE, FASTING 195 MG/DL (70-100); POTASSIUM SERUM 6.6 MEQ/L (3.5-5.1); SODIUM LEVEL 139 MEQ/L (136-145)
[2021-06-10] MEDS: LORazepam 2 MG/ML VIAL IV PRN ×2 (13:17→13:40)
== END 2021-06-10 15:09 | disposition expired | DRG 981 ==
LOC: M MS5PR 20:00 → M PCU 21:10 → M ICU 05-28 06:11 → M PCU 05-30 17:57 → M ICU 06-04 01:05
PROVIDERS: ADMIT Family Medicine; ATTEND Internal Medicine Critical Care Medicine
PROC: 093K8ZZ Control Bleeding in Nasal Mucosa and Soft Tissue, Via Natural or Artificial Opening Endoscopic (ICD-10-PCS; 2021-05-28)
PROC: 30233N1 Transfusion of Nonautologous Red Blood Cells into Peripheral Vein, Percutaneous Approach (ICD-10-PCS; 2021-05-28)
PROC: 30233K1 Transfusion of Nonautologous Frozen Plasma into Peripheral Vein, Percutaneous Approach (ICD-10-PCS; 2021-05-28)
PROC: 30233R1 Transfusion of Nonautologous Platelets into Peripheral Vein, Percutaneous Approach (ICD-10-PCS; 2021-05-28)
PROC: 0B9 Respiratory System, Drainage (ICD-10-PCS; principal; 2021-06-06)
PROC: 5A1955Z Respiratory Ventilation, Greater than 96 Consecutive Hours (ICD-10-PCS; 2021-06-06)
DX: R04.0 Epistaxis (principal); J96.01 Acute respiratory failure with hypoxia; I26.99 Other pulmonary embolism without acute cor pulmonale; G93.41 Metabolic encephalopathy; R65.20 Severe sepsis without septic shock; I26.93 Single subsegmental thrombotic pulmonary embolism without acute cor pulmonale; A41.9 Sepsis, unspecified organism; J18.9 Pneumonia, unspecified organism; J81.1 Chronic pulmonary edema; D62 Acute posthemorrhagic anemia; J91.0 Malignant pleural effusion; D84.9 Immunodeficiency, unspecified; J44.1 Chronic obstructive pulmonary disease with (acute) exacerbation; N17.9 Acute kidney failure, unspecified; R04.2 Hemoptysis; R04.89 Hemorrhage from other sites in respiratory passages; J44.0 Chronic obstructive pulmonary disease with (acute) lower respiratory infection; D50.9 Iron deficiency anemia, unspecified; I10 Essential (primary) hypertension; E03.9 Hypothyroidism, unspecified; I25.10 Atherosclerotic heart disease of native coronary artery without angina pectoris; Z95.810 Presence of automatic (implantable) cardiac defibrillator; C45.9 Mesothelioma, unspecified; J84.10 Pulmonary fibrosis, unspecified; Z66 Do not resuscitate; E87.5 Hyperkalemia; Z51.5 Encounter for palliative care; Z79.899 Other long term (current) drug therapy; Z79.82 Long term (current) use of aspirin; Z92.21 Personal history of antineoplastic chemotherapy; Z87.891 Personal history of nicotine dependence; Z95.0 Presence of cardiac pacemaker; Z95.2 Presence of prosthetic heart valve; T45.1X5A Adverse effect of antineoplastic and immunosuppressive drugs, initial encounter; E78.5 Hyperlipidemia, unspecified; Z96.652 Presence of left artificial knee joint